=== PATIENT | female | born 2000 | race Caucasian/White ===

== ENCOUNTER 2019-08-10 09:00 | Outpatient (RCR) | payer BC, SELFPAY ==
--- NOTE | 2019-08-10 09:10 | BH.SGPN.GN ---
Behaviors/Verbalizations/Mental Status: []Client alert and oriented, appropriately groomed and casual in appearance. Eye contact good. Motor activity appropriate. Speech within normal limits. Affect congruent, mood anxious and depressed. Thoughts linear, logical, no signs of hallucinations or delusions. Reviewed daily symptom tracker and client denies suicidal ideation, plan, or intent at this time. Client Response/Progress/Benefit: []Client new to IOP treatment and did well to actively engage AEB attentively listening to others and openly processing with the group. Shee reported her emotion for the day is ?numb? as she has been struggled to really feel ?much of anything recently?. Expressed that apathy is something she wants to address while in the program. Client did well to identify current mental health wins and indicated that one win was opening up to her mother about her mental health for the first time. Shared this was scary but ended up being a positive experience as her mother was more understanding than she had expected. Client indicated that another win is finally getting some school work done rather than continuing to procrastinate. She expressed that avoidance is something she often struggles with. Additional stressor noted as toxic friendships she struggles setting boundaries with. Appeared to benefit from group support and structure. Recommended continued IOP tx to reduce anxiety and depression, improve coping repertoire, and prevent decompensation. Narrative Note: []
--- NOTE | 2019-08-10 10:15 | BH.SGPN.GN ---
Behaviors/Verbalizations/Mental Status: []Client alert and oriented, casual dress, hygiene tended to. Eye contact good. Motor activity appropriate. Speech within normal limits. Affect constricted, mood depressed and anxious. Thoughts linear, logical, no signs of hallucinations or delusions. Client Response/Progress/Benefit: []Pt responded well to session as evidenced by pt contributing to discussion and listening attentively to others. Pt engaged in discussion about the importance of addressing obstacles and how avoidance of obstacles makes the situation worse. Pt identified in her current reality she feels all by herself and everyone else is connected. Pt stated she doesn't feel wanted and pushes people away. Pt stated her desired reality is to feel connected with others, improve relationships and have more self-compassion. Pt seemed to benefit from increased awareness of current reality and identifying a realistic goal for desired reality. Pt to continue IOP to increase healthy coping, decrease anxiety, and prevent decompensation. Narrative Note: []
--- NOTE | 2019-08-10 11:18 | BH.SGPN.GN ---
Behaviors/Verbalizations/Mental Status: []Client alert and oriented, neatly dressed and groomed. Eye contact good. Motor activity appropriate. Speech within normal limits. Affect congruent, mood anxious. Thoughts linear, logical, no signs of hallucinations or delusions. Client Response/Progress/Benefit: []Client was an active participant in group discussion and activity, did well to communicate instructions during the activity. Engaged during activity and provided ideas on how to cope with internal barriers that keep clients stuck from moving towards goals. Barriers identified by the group included: lack of motivation, rumination, anxiety, negative thinking, limited supports, and lack of confidence. Strategies identified for overcoming these barriers included: meditation, strengthening old supports, thought challenging, opposite action, and positive self-talk. Client selected that she wanted to work on managing her anxiety by learning calming strategies. Client reported she wants to practice deep breathing. Client stated she has never been in counseling before, so all the coping skills are new to her. Benefited from group by identifying obstacles and solutions to desired reality. First day of IOP. Will continue IOP tx to prevent decompensation of anxiety symptoms, reduce depression, and learn healthy coping skills. Narrative Note: []
--- NOTE | 2019-08-13 09:02 | BH.SGPN.GN ---
Behaviors/Verbalizations/Mental Status: []Client alert and oriented, casual dress, hygiene tended to. Eye contact good. Motor activity appropriate. Speech within normal limits. Affect congruent, mood anxious. Thoughts linear, logical, no signs of hallucinations or delusions. Reviewed client's daily symptom tracker, no risk for suicidal ideation, plan, or intent as of 08/13/19. Client Response/Progress/Benefit: []Client responded well to session, providing supportive statements to peers. Client reports feeling confused today. Client stated she had a bad experience at a [employer] over the weekend, which made client freak out on her brother and spend the night ruminating. Client reported she spent time with some old friends from high school, and some of them are toxic. Client shared she does not know how to set boundaries with them because client often worries about what other people think of her. Client was receptive to feedback from to group on setting boundaries as a form of self-love. Client stated she has a good friend is supportive of setting boundaries which helps client. Client's mental health wins today are that client came to group today even though she wanted to cancelled because she was feeling low and spending time with her family this weekend. Client appeared to benefit from verbalizing her stressor and gaining perspective on ways to set boundaries. Will continue IOP tx to prevent decompensation of symptoms, improve mood stability, and decrease avoidance behaviors. Narrative Note: []
--- NOTE | 2019-08-13 10:07 | BH.SGPN.GN ---
Behaviors/Verbalizations/Mental Status: []Client alert and oriented, casually dressed and groomed. Eye contact fair to good. Motor activity appropriate. Speech within normal limits. Affect constricted, mood anxious and depressed. Thoughts linear, logical, no signs of hallucinations or delusions. Client Response/Progress/Benefit: []Client was an active participant AEB client providing input during discussion and listened attentively to others. Contributed to discussion on importance of being able to ?sit with uncomfortable feelings?, however shared struggling to be able to do so. Client connected with discussion on different types of anxiety, as well as the difference between ?normal? anxiety and anxiety disorders. Client gained awareness of personal physical symptoms of anxiety which included: headache, tight muscles, tight chest, racing heart, fatigue, and upset stomach. Client identified anxious thoughts she has include: ?what will happen if?? and What will everyone think?. Client appeared to benefit from gaining insight to physical signs of anxiety and how thoughts can increase or maintain anxiety. Will continue IOP to increase healthy coping skills, challenge distorted thoughts, and prevent decompensation. Narrative Note: []
--- NOTE | 2019-08-13 11:15 | BH.SGPN.GN ---
Behaviors/Verbalizations/Mental Status: [] Client alert and oriented, casual in appearance. Eye contact good. Motor activity appropriate. Speech within normal limits. Affect congruent, mood anxious and depressed. Thoughts linear, logical, no signs of hallucinations or delusions. Client Response/Progress/Benefit: []Pt an active participant AEB providing input and personal examples to discussion and listened attentively to others. Pt did well to connect with the discussion reviewing three categories of skills for managing anxiety which included mind-based, body-based, and self-soothing. Pt contributed and took notes as group brainstormed various skills within the different categories. Pt provided example of walking as a body-based activity. She did well to identify a skill he is willing to practice in each area which included self-soothing as: gardening; mind-based: meditation, and body-based: trying progressive muscle relaxation. Pt seemed to benefit from increased awareness of healthy skills to manage anxiety related symptoms and in identifying skills willing to practice outside treatment environment. Progress seen in increased insight and engagement in group. Recommended to continue IOP level of care to increase healthy coping skills, continue to promote communication skills, and prevent decompensation. Narrative Note: []
--- NOTE | 2019-08-13 14:13 | BH.MTP ---
Master Treatment Plan - Patient Information Program Physician:: Dr. 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 Description of Barriers: Client?s symptoms are currently impacting her social, familial, and educational functioning. Client reports avoidance behaviors and isolation because of her anxiety and depression which caused client to switch colleges last year. Client reports she struggles with reaching out to support due self-stigma associated with her mental health. Client shared ?I didn?t want to admit something was wrong.? Client reported she has a hard time setting boundaries at times and often worries what other people think of her which leads to rumination. Client recognizes that she struggles to be compassionate with herself which often leads to self-criticism and impatience with progress. Client reports barriers in finding better social supports which also causes client anxiety. Functional Impact: Client is a 19-year-old female with a history of depression and anxiety. Client was referred to IOP by her mother due to worsening anxiety and depression that was impacting client functioning. Client shared since starting college last year, her anxiety and depression have significantly worsened. Client reported her first semester of college she had difficulty leaving her dorm room for class or social events. Client shared she would sit in her room and have constant negative thoughts. Client's grades became impacted by client's isolation and client decided to transfer schools to move closer to home. Client transferred to a college closer to home, but her symptoms of depression and anxiety continued to worsen. Client endorses a depressed mood, passive thoughts of , lack of motivation, lack of concentration, lack of energy, anhedonia, and increased sleep. Client also reports feeling disconnected and hopeless. Additionally, client reports symptoms of social anxiety and anxiety. Client endorses daily ruminations, history of panic attacks, racing thoughts, over-analyzing, and avoidance behaviors. Client's symptoms are currently impacting her ability to function at her baseline as well as complete daily tasks. Goal Relevant Strengths/Supports: Client presents as a kind, intelligent, and motivated young woman who wants to improve her mental health. Client has never had therapy before, but she reports being open to learning new strategies to improve her mental health. Client has a good base of healthy coping skills including exercising, spending time with friends, and talking with her mother. Client reported her mother is like my best friend and client is interested in having her mother come in for a family session. Client is currently in college taking online classes and she has goals to potentially move in with a friend next year. - Objectives Objective #1 Stated Objective: Client will learn and utilize 2-3 healthy coping strategies to better manage depressive symptoms as shown by a reduced DSM-5 scores for depression. Interventions: Through group and individual sessions, therapist will help client identify triggers and warning signs of depression and emotional dysregulation including emotional, physical, and behavioral changes. Therapist will teach client various coping skills to manage her symptoms and give client tangible resources to use to regulate emotions. Therapist will use cognitive restructuring techniques and help client gain awareness of negative thoughts that reinforce guilt and depression. Therapist will provide psychoeducation on maintenance cycles and help client learn ways to break unhealthy maintenance cycles. Therapist will help client incorporate behavioral activation and assist client in setting SMART goals. Discharge Criteria: Client will have met this goal when she can report learning and using at least 2 coping skills to manage depressive symptoms. Additionally, client will have met this goal when her depressive symptoms have reduced on the DSM-5 scale. Target Date: 09/21/19 Review Date: 09/10/19 Status: open Objective #2 Stated Objective: Client will identify at least 2-3 negative self-talk messages used to reinforce negative core beliefs and replace thoughts with positive, realistic messages. Interventions: Therapist will help client identify distorted, negative beliefs about self and replace with more realistic, affirmative messages. Therapist will use CBT to help client increase insight to the connection between thoughts, emotions, and behaviors. Therapist will also use dialectical thinking to help client combat all or nothing expectations. Therapist will encourage client to practice thought challenging and communicating with her close supports more regularly. Discharge Criteria: Client will have achieved this goal when can verbalize at least 2 negative self-talk messages and effectively replace those thoughts with affirmative messages. Target Date: 09/21/19 Review Date: 09/10/19 Status: open Problem/Goal #2 - Problem/Goal #2 Stated Goal:: Client will decrease intensity, duration, and frequency of anxiety so that daily functioning is not impaired. Description of Barriers: Client?s symptoms are currently impacting her social, familial, and educational functioning. Client reports avoidance behaviors and isolation because of her anxiety and depression which caused client to switch colleges last year. Client reports she struggles with reaching out to support due self-stigma associated with her mental health. Client shared ?I didn?t want to admit something was wrong.? Client reported she has a hard time setting boundaries at times and often worries what other people think of her which leads to rumination. Client recognizes that she struggles to be compassionate with herself which often leads to self-criticism and impatience with progress. Client reports barriers in finding better social supports which also causes client anxiety. Functional Impact: Client is a 19-year-old female with a history of depression and anxiety. Client was referred to [facility] by her mother due to worsening anxiety and depression that was impacting client functioning. Client shared since starting college last year, her anxiety and depression have significantly worsened. Client reported her first semester of college she had difficulty leaving her dorm room for class or social events. Client shared she would sit in her room and have constant negative thoughts. Client's grades became impacted by client's isolation and client decided to transfer schools to move closer to home. Client transferred to a college closer to home, but her symptoms of depression and anxiety continued to worsen. Client endorses a depressed mood, passive thoughts of , lack of motivation, lack of concentration, lack of energy, anhedonia, and increased sleep. Client also reports feeling disconnected and hopeless. Additionally, client reports symptoms of social anxiety and anxiety. Client endorses daily ruminations, history of panic attacks, racing thoughts, over-analyzing, and avoidance behaviors. Client's symptoms are currently impacting her ability to function at her baseline as well as complete daily tasks. Goal Relevant Strengths/Supports: Client presents as a kind, intelligent, and motivated young woman who wants to improve her mental health. Client has never had therapy before, but she reports being open to learning new strategies to improve her mental health. Client has a good base of healthy coping skills including exercising, spending time with friends, and talking with her mother. Client reported her mother is like my best friend and client is interested in having her mother come in for a family session. Client is currently in college taking online classes and she has goals to potentially move in with a friend next year. - Objectives Objective #1 Stated Objective: Client will identify 2-3 cognitive distortions that lead to rumination and learn 2-3 ways to manage these thoughts to better manage anxiety as shown by reduced DSM-5 scores for anxiety. Interventions: Therapist will provide education on the most common cognitive distortions and teach client the connection between thoughts, emotions, and feelings. Therapist will assist client in identifying, challenging, and replacing dysfunctional thoughts with positive, more realistic thoughts. Therapist will use CBT and DBT techniques to help client gain awareness of thinking errors and learn how to more effectively handle negative thoughts. Therapist will also use self-compassion to help client set more realistic expectations for herself. Discharge Criteria: Client will have accomplished this goal when can identify at least 2 cognitive distortions and at least 2 coping skills to manage negative thoughts. Target Date: 09/21/19 Review Date: 09/10/19 Status: open Objective #2 Stated Objective: Client will reduce avoidance behaviors that reinforce anxiety by setting 2-3 small goals a week to increase socialization and decrease school-related stress. Interventions: Through group and individual sessions, client will learn about the benefits of goal setting to overcome anxiety-producing situations. Therapist will help client set SMART goals and challenge barriers. Therapist will use cognitive restructuring techniques and help client gain awareness of negative thoughts that reinforce avoidance cycles. Therapist will help client incorporate mindfulness, opposite action, and self-talk strategies to manage anxiety. Discharge Criteria: Client will have accomplished this goal when she can report accomplishing at least two small goals a week that support her plans for the future. Additionally, client will be able to report decreased isolation. Target Date: 09/21/19 Review Date: 09/10/19 Status: open
--- NOTE | 2019-08-13 14:13 | BH.MDN ---
Multi-Disciplinary Note - Note 30-min Individual Time Started:: 12:15 Date: 08/13/19 Purpose of session/treatment goals addressed:: The purpose of this session was to gather information on client's current stressors, symptoms, and treatment goals. Another goal was to build rapport. Eye Contact:: Good Motor Activity:: Appropriate Appearance:: Casual Speech:: Appropriate Mood:: Anxious, Dysthymic Affect:: Congruent Thoughts:: Linear, Logical, No evidence of hallucinations/delusions noted Staff Interventions:: Therapist used active listening and open-ended questions to explore client's current stressors, symptoms, history, and treatment goals. Therapist used strengths perspective to build rapport and help client identify personal resilience factors and already existing coping skills. Therapist provided psychoeducation on depression and anxiety, maintenance cycles, and cognitive distortions. Gave client homework to identify her personal maintenance cycles. Client Response:: Client responded well to session, open to meeting with therapist. Client shared group went well for her today because she learned all about anxiety. Client stated she feels like she is in school because she is learning so much in [employer]. Client connected with maintenance cycles for both anxiety and depression. Client shared when she was at [employer] client became depressed which led to isolation. Client reported she ended up leaving because she was not functioning which was impacting her schoolwork. Client reported having a lot of self-deprecating talk during her time at [employer]. Client shared I felt like I wasn't enough and that the other girls were better than me. Client receptive to psychoeducation on anxiety, depression, and cognitive distortions. Client read through some of the distortions and connected with overgeneralizing and emotional reasoning. Client reports she often has negative thoughts that others think badly of her and she cares a lot about what other people think of her. Client shared she wants to move away from her small town and get away from the toxic environment. Client stated she has negative thoughts that she is a burden to her family, and she connected with mental health stigma. Willing to have a family session with her mother to help client's mother get more information on psychoeducation. Risks/Concerns:: Client denies any suicidal ideations, plan, or intent as of 08/13/19. Progress Toward Goals/Plan:: Client?s second day of IOP tx. No progress to document at this time. Client appears motivated for treatment and was receptive to psychoeducation. Currently endorses a depressed mood with anhedonia, low energy, and lack of motivation. Client also reports social anxiety, avoidance behaviors, and ruminations. Client shared her anxiety has caused client to struggle in college and impacts client?s interpersonal relationships. Receptive to learning about maintenance cycles and strategies to reduce intensity of symptoms. Will continue IOP tx to prevent decompensation, improve daily functioning, and reduce anxiety. Time Stopped:: 12:48
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
--- NOTE | 2019-08-15 10:14 | BH.NA_ITS ---
Physical Data - Vital Signs Pulse Rate: 76 Respiratory Rate: 14 Blood Pressure: 100/50 - Height/Weight Height: 1.75 m Weight:: 67.132 kg Weight in Pounds: 148.0 lbs Nutritional History - Appetite Nutritional Instructions:: If client shows signs of a swallowing problem, weight change of 10 pounds or more in the last month, or is on a diabetic diet, the physician will review and request a dietitian consult, as appropriate. All unintentional weight loss will be referred to the physician for decision on need for dietitian consult. Describe your appetite:: Poor Have you noticed a change in your eating habits lately?: Yes - client reports decreased appetite Functional Assessment - Sleep Pattern Describe any problems with sleeping: Client reports decrease in sleep. Client states she sleeps about 5 hours per night and finds it hard to fall asleep and hard get back to sleep if she wakes in the middle of the night. Client does report sleeping during the day at times. - Activities Motor Activity:: Functional Sensory/Communication Assess - Communication Problems Do you have difficulty understanding what people are saying?: No What is your primary language?: Malawian Learning Assessment - Education What is your level of education?: Some College Medical Problems/History - Gastrointestinal Conditions Gastrointestinal: Other (See comments) Comments:: client reports history of some acid reflux, has been on medication at times in the past for same but is not currently taking anything. - Pain Assessment Do you have acute or chronic pain?: No Surgical History - Surgical History Have you had any surgeries? If so, list type and date:: Yes - tonsilectomy at age 2 Substance Abuse - Substance Abuse Please describe substance abuse in the last 30 days:: Client reports drinking alcohol every other weekend, stating she usually has 5 glasses of wine. Client denies tobacco use. Client states she has tried marijuana in the past but does not currently use. Client denies drinking beverages with caffiene. Mental Status Summary - Mental Status Significant Findings/Observations on Appearance and Mood:: Client is alert and oriented x 4. Client is casually groomed with good hygiene. Client is cooperative with assessment and makes good eye contact. Client is wearing cloth mask over nose/mouth due to COVID pandemic. Client's voice with normal rate and volume, speech coherent and spontaneous. Client appears mildly depressed during assessment. Client with good attention during assessment. Client makes logical associations and has normal processing. Client denies delusions/hallucinations, no evidence of same. Client denies SI. Suicide Assessment - Suicidal Ideation Are you currently or have you been suicidal in the past?: Yes Suicidal Intentional Rating Scale (SIRS): Suicidal thoughts (past) - Client denies SI today. Physician Notification: If Active suicidal thoughts/Will not contract for safety is checked, contact physician and document in the Physician Notification section below. Past Psychiatric History - MH Treatment Hx Past Psychiatric Medications:: None Age of first mental health symptoms: Client states her depression really has started and worsened in the last year with her being at college. Client has never been diagnosed with depression. Describe (age, circumstance, etc) any past hospitalizations: None. Current providers for mental health treatment (counselor, psychiatrist, returned case inspector, etc.): None. Fall Risk Assessment - Age Age: Less than 60 - Mental Status Mental Status: Willing & able to ask for assistance when needed - Physical Status Physical Status: No problems - Impairments Impairments: None - Elimination Elimination: Continent AND independent - Gait or Balance Gait or Balance: Walks independently - Hx of Falls History of falls in the past 6 months: No known history - Medications/Substances Medications/substances used within the past 24 hours or ordered to administer: None of the medications/substances list above - Total Score Total Points:: 0 RN Summary of Impressions - Impressions Recommendations: Include psychiatric and medical issues, treatment planning recommendations, and discharge planning needs. Impressions: Psychiatric Issues: major depressive disorder recurrent severe without psychosis, generalized anxiety disorder - Level of Care How do the client's current symptoms and functional deficits support need for this level of care?: Client states her depression and anxiety have been going on for about a year. Client states being at college has made it worse. Client states over the year, she has discussed getting therapy with her mom about the depression/anxiety symptoms but has never really had time until now with [facility] dylan and doing college classes online instead of at campus. Client reports feelings of social anxiety, stating she is constantly thinking other people are judging her and shes not good enough for other people. Client also reports feelins of worthlessness, not feeling good enough for her family, decreased sleep, decreased appetite, decreased concentration, anhedonia, and avoidance. Client also reports as stressor as pressure from her family due to them having a family business, and she feels like she is not good enough. Client denies SI at this time. IOP will promote gains and prevent further decompensation while p roviding social support and skills training.
--- NOTE | 2019-08-15 10:15 | BH.SGPN.GN ---
Behaviors/Verbalizations/Mental Status: []Client alert and oriented, casually dressed and groomed. Eye contact good. Motor activity appropriate. Speech within normal limits. Affect constricted, mood euthymic. Thoughts linear, logical, no signs of hallucinations or delusions. Client Response/Progress/Benefit: []Client responded well to session, attentive and providing input to discussion. Client stated negative thoughts and past experiences can keep people from setting boundaries in the future. Client agreed with peers that without healthy boundaries, one?s mental health can worsen. Group identified the benefits to setting boundaries as well as the consequences of not setting healthy boundaries. Client stated it is important to set boundaries with ourselves and others. Client reported this could help a person get out of an unhealthy maintenance cycle. Participated in the discussion of benefits of setting boundaries which included; feeling happier, less negative thinking, avoidance of toxic people, and ability to manage mental health better. Client engaged during psychoeducation on the different types of boundaries and able to identify examples of each. Client seemed to benefit from increased awareness of how poor boundaries can negatively impact mental health. Progress noted in client?s increased self-awareness and engagement in group. Will continue IOP tx to prevent decompensation, improve mood stability, and improve educational functioning. Narrative Note: []
[2019-08-15 10:44] VITALS: BP 100/50; PULSE 76; RESP 14
--- NOTE | 2019-08-15 11:17 | BH.SGPN.GN ---
Behaviors/Verbalizations/Mental Status: []Client alert and oriented, casually dressed and groomed. Eye contact good. Motor activity appropriate. Speech within normal limits. Affect constricted, mood euthymic. Thoughts linear, logical, no signs of hallucinations or delusions. Client Response/Progress/Benefit: []Client responded well to session, actively contributing during discussion and making connections during the activity. Client engaged in the boundary self-assessment activity and participated in discussion to process the activity. Client shared she has struggled with not sharing her mental health with supports ?because I don?t want them to know I?m struggling.? Client able to recognize progress in her willingness to share about her mental health at IOP. Client attentive during psychoeducation on the boundary setting styles and able to connect with the different styles. Client reported she uses both the rigid and the flexible styles. Client shared she has a tendency to initially shut down and hold in her emotions, but with the passing of time, client will seek support. Client shared she is trying to combat distortions that prevent her from reaching out to support sooner. Client wants to work on being more flexible by communicating her mental health treatment with her mother. Progress noted as client continues to learn more about her mental health symptoms and healthy coping skills. Will continue IOP tx to prevent decompensation, improve mood stability, and decrease frequency of negative thoughts. Narrative Note: []
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
--- NOTE | 2019-08-15 11:44 | BH.PSY.EVA_ITS ---
Initial Treatment Plan - Patient Information Visit Information: ADMISSION DATE: EXPECTED LOS: 4-6 weeks - Problems/Symptoms Problem #1:: Depression Symptom:: Sadness, hopelessness, worthlessness, anhedonia, decreased concentrat ion, biological disruption of sleep Problem #2:: Anxiety Symptom:: Rumination, restlessness, social avoidance
--- NOTE | 2019-08-17 10:14 | BH.SGPN.GN ---
Behaviors/Verbalizations/Mental Status: []Client alert and oriented, casually dressed and groomed. Eye contact good. Motor activity appropriate. Speech within normal limits. Affect congruent, mood anxious, depressed. Thoughts linear, logical, no signs of hallucinations or delusions. Client Response/Progress/Benefit: []Pt active participant as shown by contribution to discussion and insight provided. Pt shared connecting to group topic of self-care. Shared that to her self-care means ?loving ourselves? and discussed that ?if we truly loved ourselves, we?d me more enjoyable to be around?. Pt helped the group discuss benefits of self-care which included; improved self-esteem, increase patience, increased productivity, improved relationships. Pt participated in the discussion of the common myths about self-care including self-care is selfish, too much effort and time, and is self-indulgent. Client participated in the discussion on debunking of these myths. Client seemed to benefit from increased awareness of the importance of self-care and challenging common myths that prevent practicing self-care. Discussed at times struggling to remind herself that self-care is important when not feeling well. Client progress noted in client?s increased insight into self-care. Will continue IOP tx to promote gains, improve consistency and stability, as well as prevent decompensation. Narrative Note: []
--- NOTE | 2019-08-17 11:13 | BH.SGPN.GN ---
Behaviors/Verbalizations/Mental Status: []Client alert and oriented, neatly dressed and groomed. Eye contact good. Motor activity appropriate. Speech within normal limits. Affect congruent, mood euthymic. Thoughts linear, logical, no signs of hallucinations or delusions. Client Response/Progress/Benefit: []Client receptive of session, engaged and positively contributing to discussion. Participated in further debunking myths about self-care and reinforcing the benefits of practicing consistent self-care. Engaged in small group discussion and attentive while others shared. Willing to complete worksheet activity and helped the group identify various types of self-care activities. Client completed self-assessment activity on the different areas of self-care and was able to identify current practices she uses and identify areas she can improve upon. Client reported she can improve her emotional self-care. Client reported up until coming to IOP, she was very rigid with her emotional boundaries and did not share with supports. Client stated she wants to work on learning how to express her emotions and not assume her supports can read her mind. Client appeared to benefit from increasing awareness of how she can improve self-care balance. Progress noted as client has been able to increase self-awareness and begin to learn healthy coping skills. Will continue IOP tx to decrease negative thoughts, reduce depression and anxiety, and improve mood stability. Narrative Note: []
--- NOTE | 2019-08-20 11:12 | BH.SGPN.GN ---
Behaviors/Verbalizations/Mental Status: []Eye contact is fair to good. Motor activity is appropriate. Appearance is neat and casual. Speech is Appropriate. Mood is depressed, anxious. Affect is congruent. Thoughts are linear and logical. No evidence of psychosis Client Response/Progress/Benefit: []Client receptive of session, semi-engaged and contributing to discussion when prompted, though remained mostly passive throughout. Provided some feedback to peers and willingly completed goal setting worksheet. Client chose the goal; Spend at least 30 minutes exercising daily for 7 days. When asked why this goal was important and beneficial to client's mental health she stated; It will improve self-confidence, make me feel more motivated to get other tasks done, and reduce depression. Identified the following barriers to completing this goal which included; forgetting, negative self-talk, and lack of motivation. Identified solutions to barriers which included; set a reminder, say positive affirmations, and ask someone to workout with her. Benefited from this group by practicing how to develop a short-term SMART goals related to mental health. Will continue IOP tx to further decrease anxiety and depression, reduce negative thoughts, and improve healthy communication levels. Narrative Note: []
--- NOTE | 2019-08-23 09:05 | BH.SGPN.GN ---
Behaviors/Verbalizations/Mental Status: []Client alert and oriented, casual dress, hygiene tended to. Eye contact good. Motor activity appropriate. Speech within normal limits. Affect constricted, mood dysthymic. Thoughts linear, logical, no signs of hallucinations or delusions. Reviewed client?s symptom tracker, no risk of suicidal ideation, plan or intent as of 08/23/19. Client Response/Progress/Benefit: []Client responded well to session, attentive and engaged throughout session. Client reports feeling tired but calm today. Client shared she has not had a lot of energy or motivation late, but client has still been motivating herself to get up and do things throughout the day. 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 Client reported this is exciting for her because she is going to school for business, but she is anxious to meet the high expectations. Client reported her expectations for herself can be unrealistic which leads to comparison and anxiety. Public Health Clinical Nurse Specialist reminded client to practice self-compassion when she starts her new role. Appeared to benefit from reflecting on the benefits of self-compassion and connecting with peers. Will continue IOP tx to prevent decompensation, improve mood stability, and further decrease intensity of symptoms. Narrative Note: []
--- NOTE | 2019-08-23 10:14 | BH.SGPN.GN ---
Behaviors/Verbalizations/Mental Status: [] Client alert and orient. Appearance casual and appropriately groomed. Speech an appropriate rate and tone. Motor activity WNL. Mood anxious and dysthymic, affect congruent. No evidence of delusion or hallucinations.? Client Response/Progress/Benefit: [] Client responded well to session, attentive throughout, providing input to discussion. Listened and participated throughout group discussion defining conflict and the differences between internal and external conflict. Group reported the benefits of addressing conflict included: increased self-confidence, increased trust in relationships, having needs be met, and preventing further conflict from arising. Group additionally identified and discussed consequences of not addressing conflict in healthy ways which included: decreased self-esteem, damaged relationships, increased mental health symptoms, and additional stressors developing as a result. Benefited as client was able to identify current conflict style and how it impacts mental health. She nodded as fellow participants discussed times they have used avoidance and accommodating approached to conflict. Pt expressed that avoiding external conflict can reinforce depressive sx and result in increased internal conflict. Progress noted as shown by client?s report of improved application of skills learned. Will continue IOP tx to promote application of healthy communication skills, reduce mental health sx severity, and further improve daily functioning. Narrative Note: []
--- NOTE | 2019-08-23 14:33 | BH.MDN ---
Multi-Disciplinary Note - Note 45-min Individual Time Started:: 11:37 Date: 08/23/19 Purpose of session/treatment goals addressed:: The purpose of this session was to address current symptoms, stressors, and triggers. Another goal was to identify core values and identify strategies to reduce stressors. Other topics included; communication and boundary setting. Eye Contact:: Good Motor Activity:: Appropriate Appearance:: Neat Speech:: Appropriate Mood:: Anxious Affect:: Constricted Thoughts:: Linear, Logical, No evidence of hallucinations/delusions noted Staff Interventions:: Therapist used active listening and open-ended questions to explore client's current stressors, triggers, and symptoms. Therapist praised client for communicating her feelings with her father. Therapist provided psychoeducation on cognitive dissonance and how this impacts one's mental health. Therapist helped client explore her values and reflect on how her values impact current relationships. Therapist helped challenge anxious thoughts and process current stressors. Thereapist assisted client in setting a small goal for today to reduce stress and increase productivity. Client Response:: Client responded well to session, open to meeting with therapist. Client shared she had a good conversation with her dad over the weekend. Client stated she expressed to her dad that she feels left out when he spends time with just client's brothers. Client stated she was nervous to express this to him, but it turned out to be a good conversation. Client shared belief their relationship has improved because of it. Client reported she is feeling really anxious today because she is stressed about all she has to do. Client is also anxious about her friendships and setting boundaries with toxic people. Receptive to discussion on cognitive dissonance and how this impacts client's mental health. Client reported she connects with cognitive dissonance and stated she has felt torn when spending time with certain people because I know we don't value the same things. Client discussed her values and able to identify her most important values in life which included; career, spirituality, and job. Client used this to reflect on friendships in her life that do not support these values. Client reported this will help her set boundaries with toxic people. Client stated she is feeling anxious about all the things she has to accomplish. Client reported she has finals next week and she is anxious about not doing her usual routines. Client and therapist disucssed strategies to help client better manage her stressors. Client asked herself questions such as; who can help client, does this really need accomplished this week, and how long will this take. Client's goal today is to write one of her shorter essays and practice her skin-care routine. Risks/Concerns:: Client denies any suicidal ideations, plan, or intent as of 08/23/19. Progress Toward Goals/Plan:: Client appears to be making progress towards her treatment goals as shown by client's report of communicating her emotions more openly with family. Client is also practicing opposite action by pushing herself to get out of the house each day. Client continues to struggle with depressive symptoms of poor appetite, lack of energy, lack of motivation, and difficulty falling asleep. Client also continues to endorse ruminations, avoidance behaviors, and anxiety daily. Will continue IOP tx to prevent decompensation of symptoms, increase healthy coping skills, and improve mood stability. Time Stopped:: 12:20
== END 2019-08-23 23:59 ==
LOC: BHIOP 09:00
PROVIDERS: PCP Internal Medicine; Referring Provider Psychiatry & Neurology Psychiatry; Visit Provider Psychiatry & Neurology Psychiatry
DX: F33.2 Major depressive disorder, recurrent severe without psychotic features (principal); F41.1 Generalized anxiety disorder; Z79.899 Other long term (current) drug therapy
CPT/HCPCS: H0035; 90832; 90834; 90853

== ENCOUNTER → 2019-08-17 12:19 | Outpatient (CLI) | payer BC, SELFPAY ==
[2019-08-17 13:32] LABS: Vitamin D,25 Hydroxy 35.8 ng/mL
== END ==
PROVIDERS: PCP Internal Medicine; Referring Provider Obstetrics & Gynecology; Visit Provider Obstetrics & Gynecology
DX: E55.9 Vitamin D deficiency, unspecified (principal)
CPT/HCPCS: 36415; 82306; 84443

== ENCOUNTER 2019-08-27 09:00 | Outpatient (RCR) | payer BC, SELFPAY ==
[2019-08-24 00:22] VITALS: BP 100/50; PULSE 76; RESP 14
--- NOTE | 2019-08-27 09:08 | BH.SGPN.GN ---
Behaviors/Verbalizations/Mental Status: []Client alert and oriented, appropriately groomed and casual in appearance. Eye contact good. Motor activity appropriate. Speech within normal limits. Affect congruent, mood euthymic. Thoughts linear, logical, no signs of hallucinations or delusions. Reviewed daily symptom tracker and client denies suicidal ideation, plan, or intent at this time. Client Response/Progress/Benefit: []Pt receptive of session, engaged throughout AEB attentively listening to others and openly processing with the group. Identified emotion for the day as ?confident? as she indicated an increased ability to recognize areas of progress and is implementing more positive self-talk. She did well to identify current mental health wins and indicated that one win was following through with her own personal boundaries by saying ?no? to hanging out with people she has identified as toxic to her in the past. Pt expressed that she was able to view this as empowering rather than focus on feeling guilty for not going. Notes feeling more confident in her decision making as a result. Pt noted that another win is being able to reach out to a healthy support and reflect on areas in which she feels she is making progress. Shared this helped to remind her of the positive supports in her life and allowed her to be reflect on her boundary setting as a necessary accomplishment. Expressed that her current stressor is an upcoming final exam for school later in the week, though noted that the positive is she will be done with classes for the semester. Appeared to benefit from group support and progress noted in pt report of improved mood and use of affirmations. Recommended continued IOP tx to further promote healthy change behaviors, maintain stability, and prevent decompensation.?? Narrative Note: []
--- NOTE | 2019-08-27 10:15 | BH.SGPN.GN ---
Behaviors/Verbalizations/Mental Status: []Client alert and oriented, casually dressed and groomed. Eye contact good. Motor activity appropriate. Speech within normal limits. Affect congruent, mood euthymic. Thoughts linear, logical, no signs of hallucinations or delusions. Client Response/Progress/Benefit: []Client responded well to session, attentive and engaged throughout session and activity. Client appeared to connect with the topic of fear of failure. Client reported one?s perspective on progress can contribute to feeling like they have failed. Client shared ?we believe progress is linear but it?s not.? Client participated in the discussion famous failures and how one?s response to setbacks is what truly matters. Group discussed common initial reactions to failure which included; hopelessness, negative self-talk, self-sabotage, and disappointment. Client connected with the concept that mindset is powerful in determining how a person moves forward after failing. Client shared ?managing setbacks helps us be more positive in the future.? Connected with fear of failure and how fear of failure can impact one?s mental health. Engaged and positive during the group activity, helping peers who could not remember the pattern. Client appears to be connecting with the different group topics and has been attentive during groups. Will continue IOP tx to prevent decompensation of depressive symptoms, improve healthy coping skills, and increase self-esteem. Narrative Note: []
--- NOTE | 2019-08-27 11:20 | BH.SGPN.GN ---
Behaviors/Verbalizations/Mental Status: []Client alert and oriented, casual dress, hygiene tended to. Eye contact good. Motor activity appropriate. Speech within normal limits. Affect could not be assessed due to all patients needing to wear masks to prevent potential spread of coronavirus. mood euthymic. Thoughts linear, logical, no signs of hallucinations or delusions. Client Response/Progress/Benefit: []Client responded well to session, participating during the group activity and willing to complete the worksheet. Client completed the fear of failure worksheet and reported that fear of failure is keeping client from trying new things and meeting new people. Client able to identify barriers that reinforce her fear of failure which included: negative self-talk, over-thinking, negative people, avoidance of stress, lack of self-love, and anxiety. Client attentive during discussion of the different strategies to help overcome fear of failure. Group identified strategies such as; positive self-talk, thought challenge, opposite action, keeping track of wins, setting smart goals, and accepting that mistakes happen. Client appeared to benefit from learning ways to overcome fear of failure. Will continue IOP tx to increase the use of healthy coping skills, challenge negative thoughts, and prevent decompensation. Narrative Note: []
--- NOTE | 2019-08-29 09:16 | PCM.BH.PN ---
Progress Note Progress Note: History of Present Illness/Interim History: [] The patient is a 19-year-old single female who is seen in follow-up at the [facility] program for depression and anxiety. I last saw the patient 2 weeks ago and at that time her dose of Zoloft was increased from 50 mg to 100 mg p.o. daily. The patient states that she has tolerated the medicine well and feels that her anxiety and mood have improved over the past 2 weeks. However, a few days ago she did have some pain beneath her sternum and increased anxiety. Discussed with the patient that this would be unlikely due to Zoloft since she has been taking this dose almost 10 days or more before she had the symptoms. She denies any other symptoms or side effects from the Zoloft. She states that her mood has improved and she has occasional sadness and tears but overall feels much less depressed. She feels more motivated to get things done. She denies having any more passive thoughts of . She denies hopelessness but endorses occasional feelings of worthlessness. Her anxiety is better but she still is worrying somewhat. She is enjoying more things and denies anhedonia. She has been enjoying seeing her friends horse in particular in the past week or so. Her last day of school today and this will somewhat relieve her stress. 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 Her sleep is okay overall about 6 to 7 hours a night. At times though she has trouble getting to sleep but has been using [id number] Benadryl 25 to 50 mg for this. She feels the Benadryl does help her sleep so I encouraged her to use it. She denies any suicidal ideation, homicidal ideation, hallucinations or delusions. She denies any panic attacks. She states her thoughts are less intense in terms of ruminating. Current Psychiatric Medications: [] Zoloft 100 mg p.o. daily (x2 weeks). Benadryl 25 mg, 1-2 p.o. nightly as needed for sleep. Laboratory: TSH was normal at 0.6; vitamin D2 was 35.8 which is somewhat low. Mental Status Examination: [] Patient is a 19-year-old female who is seen by telehealth and appears to be casually dressed and groomed with good hygiene. She has no psychomotor agitation or retardation. She has good eye contact as I am able to assess by computer. She has normal speech with regular rate and rhythm. Her mood is depressed but improved. Her affect is full to slightly constricted. Her thought process is goal-directed and organized. Her thought content: No evidence of any more passive thoughts of . No evidence of homicidal or suicidal ideation. No evidence of hallucinations or delusions. Judgment is intact. Insight is good. Impulsivity is low. Diagnoses: [] Atwood I: [] Major depressive disorder recurrent severe without psychosis (improving; generalized anxiety disorder Atwood II: [Negative] Atwood III: [] Negative Atwood IV:[]] Primary support and school work issues Plan: [] Patient will continue the behavioral health IOP program as the structure, support, education, individual and group therapy seem to be benefiting her and are preventing worsening of her symptoms. The patient felt safe during the interview and if at any time she does not feel safe she will let us know or go to the emergency room. The risks, options, possible side effects and complications of the medications were discussed with the patient and she understands and accepts these. She agrees to continue her Zoloft 100 mg p.o. daily. And she will is encouraged to take the Benadryl 25 to 50 mg p.o. nightly as needed. A prescription was called in for vitamin D2 50,000 IU p.o. once weekly. Number 4 tablets with 2 refills. I will see the patient in follow-up in 2 weeks or as needed. The patient will continue to follow-up with outpatient providers.
--- NOTE | 2019-08-30 09:06 | BH.SGPN.GN ---
Behaviors/Verbalizations/Mental Status: []Client alert and oriented, casual dress, hygiene tended to. Eye contact good. Motor activity appropriate. Speech within normal limits. Affect congruent, mood euthymic and positive. Thoughts linear, logical, no signs of hallucinations or delusions. Reviewed client?s symptom tracker, pt denies current suicidal thoughts or intention to date. Client Response/Progress/Benefit: []Pt responded well to session AEB pt sharing thoughts and feelings openly and listening attentively to peers. Provided supportive feedback throughout and appeared to connect with fellow participants. Pt reported mental health positive as being able to spend time with a healthy support rather than isolate yesterday. Pt identified additional mental health win as making plans to go for a hike after group today. Pt stated it felt positive to be able to make plans and is feeling more present and able to enjoy the moment as a result of increased skill application. Pt stated current stressor is figuring out how to talk with some of her more toxic friends about setting boundaries. Pt to continue IOP level of care to improve depression management, continue to improve consistent use of healthy coping, and prevent decompensation. Narrative Note: []
--- NOTE | 2019-08-30 10:13 | BH.SGPN.GN ---
Behaviors/Verbalizations/Mental Status: []Client alert and oriented, casual dress, hygiene tended to. Eye contact good. Motor activity appropriate. Speech within normal limits. Affect congruent, mood euthymic. Thoughts linear, logical, no signs of hallucinations or delusions. Client Response/Progress/Benefit: []Pt active participant throughout group session AEB pt providing input throughout and listening attentively to others. Pt stated having support system helps provide reassurance that she is doing well in a certain area and can help her see a different perspective. Pt reported not wanting to admit she is having problems which becomes a barrier to reaching out to help. Pt stated when she is not motivated, she doesn?t even attempt to reach out for support. Pt shared her support people have awareness of her warning signs so will be there for her or check-in with her. Progress noted with pt demonstrating increased self-awareness. Pt to continue IOP to continue use of healthy coping, increase self-confidence, and prevent decompensation. Narrative Note: []
--- NOTE | 2019-08-30 11:14 | BH.SGPN.GN ---
Behaviors/Verbalizations/Mental Status: []Client alert and oriented, casually dressed and groomed. Eye contact good. Motor activity appropriate. Speech within normal limits. Affect unable to gather due to wearing a mask as a precaution for COVID-19, mood euthymic. Thoughts linear, logical, no signs of hallucinations or delusions. Client Response/Progress/Benefit: []Client an active participant AEB taking notes and sharing during the group discussion. Client participated in group discussion about the different types of support and benefits different types of support can provide. Client identified she would like to increase social supports in the area of personal support by reaching out to her brothers. Client stated she wants to spend more time with her brothers and hopes this strengthens their relationship. Client shared this will help client have less stress, feel like she belongs, and feel relief. Client reported her barriers to seeking this support are not knowing what to say and feeling like there is not a right time. Client receptive to ideas for overcoming these barriers and reminding herself that doing the anxious thing has benefits. Appeared to benefit from identifying the type of support client wants to improve and identifying ways to work towards improving this support. Will continue IOP tx to promote gains in using healthy coping skills, further decrease intensity of symptoms, and improve overall functioning. Narrative Note: []
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
--- NOTE | 2019-09-05 15:32 | BH.COMM ---
Communication Note - Communication with Client Communication Note: Therapist spoke with client's mother on the phone about client returning to work. Client's mother reported client will be unable to return to IOP due to her long hours. Client's mother stated client has made significant progress and described client as like a different daughter...it's night and day. Therapist to call client with options for outpatient counseling to better accommodate her work schedule.
--- NOTE | 2019-09-07 13:46 | BH.DS_ITS ---
Discharge Summary - Demographics Date of Admission:: 08/10/19 Discharge Date: 09/07/19 Presenting Problems at Admission:: Client is a 19-year-old female with a history of depression and anxiety. Client was referred to [facility] by her mother due to worsening anxiety and depression that was impacting client functioning. Client shared since starting college last year, her anxiety and depression have significantly worsened. Client reported her first semester of college she had difficulty leaving her dorm room for class or social events. Client shared she would sit in her room and have constant negative thoughts. Client's grades became impacted by client's isolation and client decided to transfer schools to move closer to home. Client transferred to a college closer to home, but her symptoms of depression and anxiety continued to worsen. Client endorsed a depressed mood, passive thoughts of , lack of motivation, lack of concentration, lack of energy, anhedonia, and increased sleep. Client also reported feeling disconnected and hopeless. Additionally, client reported symptoms of social anxiety and anxiety. Client endorsed daily ruminations, history of panic attacks, racing thoughts, over-analyzing, and avoidance behaviors. Client's symptoms were impacting her ability to function at her baseline as well as complete daily tasks. Discharge Diagnoses:: Major depressive disorder recurrent, severe without psychosis F 33.2; generalized anxiety disorder Reason for Discharge:: Client returned to work and could no longer commit to the [facility] level of care schedule. Client self-reported significant improvement in symptom reduction sharing, a night and day difference. - Treatment Progress During Treatment & Response: Client responded well to treatment as she was an active group member and was engaged in individual sessions. Client did not complete IOP due to returning to work, but she was able to make significant progress in four weeks. Client?s mother shared client?s progress was ?like night and day? and that she felt like she had a different daughter. Client self- reported communicating her emotions more with family and friends and having better moods. Client also self-reported fewer depressive symptoms, less anxiety, healthier boundaries, and increased ability to challenge negative thoughts. Client was an active group member who often contributed to discussions and provided supportive feedback to peers. In individual sessions, client was engaged and receptive to learning new coping skills. During client?s last week in [facility], so was reporting being more social and more productive at home. Client felt like she was able to return to work which she could not do at admission. Client?s affect also improved, and she was more consistently reporting mental health wins. Client did not complete a discharge DSM-5, so therapist was unable to gather client?s scores. Issues Still to be Addressed:: Client self-reported history of minimization and lack of self-care, so she can benefit from continuing to verbalize her emotions and take time for her mental health. Client can also benefit from continued work on challenging distortions, trauma processing, boundary setting, and identifying personal strengths. Client also wants to work on being independent and eventually living on her own with less anxiety and depression. Discharge Recommendations/Instructions:: Client unable to come in for discharge, therefore an aftercare plan was not created with client. Therapist provided client with different options for outpatient counseling including; [facility], [facility], and [facility]. Client plans to get her medications refilled by her PCP. Discharge Handout: Complete Discharge Handout with client on aftercare options and continuity of care.
--- NOTE | 2019-09-07 14:35 | BH.COMM ---
Communication Note - Communication with Client Communication Note: Therapist gave client options for outpatient counseling that would better accommodate client's work schedule. Options for outpatient counseling included; [facility], [facility], and [facility].
== END 2019-09-07 14:00 | disposition home or self-care (01) ==
LOC: BHIOP 09:00
PROVIDERS: PCP Internal Medicine; Referring Provider Psychiatry & Neurology Psychiatry; Visit Provider Psychiatry & Neurology Psychiatry
DX: F33.2 Major depressive disorder, recurrent severe without psychotic features (principal); F41.1 Generalized anxiety disorder; Z79.899 Other long term (current) drug therapy
CPT/HCPCS: H0035; 90834; 90853

== ENCOUNTER 2020-05-12 09:00 | Outpatient (RCR) | payer BC, SELFPAY ==
--- NOTE | 2020-05-12 10:00 | BH.SGPN.GN ---
Behaviors/Verbalizations/Mental Status: []Client alert and oriented, casually dressed and appropriately groomed. Eye contact good. Motor activity appropriate. Speech within normal limits. Affect congruent, mood euthymic and anxious. Thoughts linear, logical, no signs of hallucinations or delusions. Client Response/Progress/Benefit: []Client engaged during session AEB taking notes, providing input, and listening attentively to others. Client worked with peers on defining goals and brainstorming the benefits of goal setting. Client shared her benefit to accomplishing goals is ?it gives you something to work towards.? Contributed as group discussed the barriers that keep people from either setting goals or following through with goals. Client identified her personal barrier as ?time.? Client attentive during psychoeducation on SMART goals. Appeared to benefit from learning the mental health benefits of setting goals using SMART criteria. Progress noted as client was vulnerable and willing to discussion challenges within the group as it was her first day in IOP program. Will continue IOP to increase the use of healthy coping skills and prevent decompensation Narrative Note: []
--- NOTE | 2020-05-12 11:20 | BH.SGPN.GN ---
Behaviors/Verbalizations/Mental Status: []Eye contact is fair. Alert and oriented. Motor activity is appropriate. Appearance is casual. grooming is appropriate. Speech is Appropriate. Mood is dysthymic. Affect is constricted. Thoughts are linear and logical. No evidence of psychosis or hallucinations. Client Response/Progress/Benefit: []Client was engaged during discussion, did well to complete activity and process with the group. Client was willing to complete the worksheet in which she was challenged to develop a personal SMART goal. Client chose the goal write 5 positive affirmations every morning for two weeks. Client stated this goal will help set a positive tone for her day. Client identified her barriers which included: forget, laziness, and no time. Client receptive to identifying solutions for these barriers and willing to begin working on this goal. Benefited from this group by developing a short-term SMART goal related to mental health. Client's first day in IOP. Will continue IOP tx to increase healthy coping skills, improve daily functioning, and prevent decompensation. Narrative Note: []
--- NOTE | 2020-05-12 14:03 | BH.COMM ---
Communication Note - Communication with Client Communication Note: Met with pt to complete initial paperwork. No changes since pre-admission screening. Completed [place] Suicide Screening with low risk. Denies any SI in the past month. Reports longstanding fleeting SI with thoughts of methods, however no hx of attempts. Reports that the thoughts occurred 2 times weekly, and were easy to control. Does have access to a weapon however it is kept safe in the house. Does not present as imminent danger to herself due to no active SI, plan, intent, or hx of attempts. Future-oriented.
--- NOTE | 2020-05-12 14:07 | BH.COMM ---
Communication Note - Communication with Client Communication Note: Met with client to discuss any concerns or questions from group sessions today. Client did not have any questions or concerns. Discussed weekly work schedule to find a balance to come to IOP groups on Tuesday and Wednesdays.
--- NOTE | 2020-05-14 09:05 | BH.SGPN.GN ---
Behaviors/Verbalizations/Mental Status: []Alert and oriented, casually dressed and groomed. Eye contact good. Motor activity appropriate. Speech within normal limits. Affect constricted, mood dysthymic. Thoughts linear, no signs of hallucinations or delusions. Clients daily symptom tracker scores indicate no risk for SI, plan, or intent. Client Response/Progress/Benefit: []Client responded well to session, providing supportive statements to peers. Client reports feeling confused this morning. Client stated not having a routine after work has been one of her biggest stressors. Client shared I just come home from work and lay in my bed all night. The group offered ideas for client to try and client was receptive. 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 Appeared to benefit from connecting with peers and processing stressors. Will continue IOP tx to prevent decompensation, reduce negative thinking, and improve daily functioning. Narrative Note: []
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
--- NOTE | 2020-05-14 12:55 | BH.PSY.EVA_ITS ---
Initial Treatment Plan - Patient Information Visit Information: ADMISSION DATE: EXPECTED LOS: 4-6 weeks - Problems/Symptoms Problem #1:: Depression Symptom:: Sadness, worthlessness, hopelessness, apathy, guilt, self-harm though ts Problem #2:: Anxiety Symptom:: Ruminations, panic attacks
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
--- NOTE | 2020-05-14 13:33 | BH.MTP_ITS ---
Master Treatment Plan - Patient Information Program Physician:: Dr. Hawa Pete Primary Therapist:: Heather BALLARD - Psychiatric Diagnoses Psychiatric Diagnoses:: Major depressive disorder recurrent, severe without psychosis F 33.2; generalized anxiety disorder Diagnosis Code(s):: F 33.2 - Estimated LOS Estimated LOS (in weeks):: 6 Problem/Goal #1 - Problem/Goal #1 Stated Goal:: Client will decrease depressive symptoms, isolation, negative self-talk, and thoughts of self-harm due to major depression disorder. Description of Barriers: Client?s symptoms are currently impacting her social, familial, and educational functioning. Client reports avoidance behaviors and isolation. Client has a hard time verbalizing her emotions and needs which as a result reinforces low self-esteem and negative thinking. Client reports she has a hard time setting boundaries and often worries what other people think of her which leads to rumination. Client reports loneliness which makes client want to enter new relationships when she is not emotionally ready. Functional Impact: Client is a 19-year-old female with a history of MDD and BING. Client previously attended [facility] from 08/10/19-09/07/19 but she did not finish the program. Client was self-referred back to [facility] due to worsening depression which is impacting her work and relationships. Client reported two months ago client started a new job and initially liked it, but then it became a toxic environment for client due to issues with co-workers. Client currently endorses a depressed mood with anhedonia, apathy, lack of energy, increased sleep, isolative behaviors, lack of concentration, and feelings of worthlessness. Client reports feeling on the verge of crying every day. Client states she goes to work and then lays in bed for the rest of the night. Client also uses marijuana 3x a week to help with anxiety. Client is not suicidal, but she has been having thoughts of self-harm. Client's symptoms have been significantly impacting her overall functioning. Goal Relevant Strengths/Supports: Client is a kind, intelligent, and receptive person who is motivated to improve her mental health symptoms. Client has support from her mother and best friend. Client also has knowledge of healthy coping skills from her previous experience in [facility]. - Objectives Objective #1 Stated Objective: Client will learn and utilize 2-3 healthy coping strategies to better manage depressive symptoms as shown by a reduced DSM-5 scores for depression. Interventions: Through group and individual sessions, therapist will help client identify triggers and warning signs of depression. Therapist will teach client various coping skills to manage her symptoms and give client tangible resources to use to regulate emotions. Therapist will use cognitive restructuring techniques and help client gain awareness of negative thoughts that reinforce low self-esteem and depression. Therapist will provide psychoeducation on maintenance cycles and help client learn ways to break unhealthy maintenance cycles. Therapist will help client learn skills to be more assertive. Discharge Criteria: Client will have met this goal when she can report learning and using at least 2 coping skills to manage depressive symptoms. Additionally, client will have met this goal when her depressive symptoms have reduced on the DSM-5 scale. Target Date: 06/23/20 Review Date: 06/09/20 Status: open Objective #2 Stated Objective: Client will identify at least 2-3 negative self-talk messages used to reinforce negative core beliefs and replace thoughts with positive, realistic messages. Interventions: Therapist will help client identify distorted, negative beliefs about self and replace with more realistic, affirmative messages. Therapist will use CBT to help client increase insight to the connection between thoughts, emotions, and behaviors. Therapist will also use dialectical thinking to help client combat all or nothing expectations. Therapist will encourage client to practice thought challenging and communicating with her close supports more regularly. Discharge Criteria: Client will have achieved this goal when can verbalize at least 2 negative self-talk messages and effectively replace those thoughts with affirmative messages. Target Date: 06/23/20 Review Date: 06/09/20 Status: open Problem/Goal #2 - Problem/Goal #2 Stated Goal:: Client will decrease intensity, duration, and frequency of anxiety so that daily functioning is not impaired Description of Barriers: Client?s symptoms are currently impacting her social, familial, and educational functioning. Client reports avoidance behaviors and isolation. Client has a hard time verbalizing her emotions and needs which as a result reinforces low self-esteem and negative thinking. Client reports she has a hard time setting boundaries and often worries what other people think of her which leads to rumination. Client reports loneliness which makes client want to enter new relationships when she is not emotionally ready. Functional Impact: Client is a 19-year-old female with a history of MDD and BING. Client previously attended [facility] from 08/10/19-09/07/19 but she did not finish the program. Client was self-referred back to [facility] due to worsening depression which is impacting her work and relationships. Client reported two months ago client started a new job and initially liked it, but then it became a toxic environment for client due to issues with co-workers. Client currently endorses a depressed mood with anhedonia, apathy, lack of energy, increased sleep, isolative behaviors, lack of concentration, and feelings of worthlessness. Client reports feeling on the verge of crying every day. Client states she goes to work and then lays in bed for the rest of the night. Client also uses marijuana 3x a week to help with anxiety. Client is not suicidal, but she has been having thoughts of self-harm. Client's symptoms have been significantly impacting her overall functioning. Goal Relevant Strengths/Supports: Client is a kind, intelligent, and receptive person who is motivated to improve her mental health symptoms. Client has support from her mother and best friend. Client also has knowledge of healthy coping skills from her previous experience in [facility]. - Objectives Objective #1 Stated Objective: Client will identify 2-3 anxiety triggers and 2 calming coping skills to reduce anxiety as shown by decreased DSM-5 cross cutting symptom measure scores. Interventions: Therapist will help client increase awareness of anxiety triggers and educate client on personal core beliefs associated with anxiety. Therapist will teach client various calming and mindfulness strategies to promote emot ional regulation and reduction of anxiety. Therapist will encourage client to implement healthy coping skills on a regular basis and increase self-care in all areas. Discharge Criteria: Client will have accomplished this goal when can report at least 2 triggers for anxiety and 2 calming strategies to manage symptoms. Additionally, client will have accomplished this goal when she can report reduced DSM-5 cross cutting symptoms for anxiety. Target Date: 06/23/20 Review Date: 06/09/20 Status: open Objective #2 Stated Objective: Client will identify 2-3 cognitive distortions that lead to rumination and passive communication and learn 2-3 ways to manage these thoughts to better manage anxiety and stress. Interventions: Therapist will provide education on the most common cognitive distortions and teach client the connection between thoughts, emotions, and feelings. Therapist will assist client in identifying, challenging, and replacing dysfunctional thoughts with positive, more realistic thoughts. Therapist will use CBT and DBT techniques to help client gain awareness of thinking errors and learn how to more effectively handle negative thoughts. Discharge Criteria: Client will have accomplished this goal when can identify at least 2 cognitive distortions and at least 2 coping skills to manage negative thoughts. Target Date: 06/23/20 Review Date: 06/09/20 Status: open
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
--- NOTE | 2020-05-19 10:03 | BH.SGPN.GN ---
This psychotherapy group was provided via telehealth using two-way, real-time interactive telecommunication technology between the patients and the provider.?The interactive telecommunication technology included audio and video.? ?The patient was offered telemedicine as an option for care delivery during the COVID-19 pandemic and consented to this option. ?Patient location: [place] ?Provider located at [facility] Behaviors/Verbalizations/Mental Status: []Client alert and oriented, casual dress, hygiene tended to. Eye contact fair. Motor activity appropriate. Speech within normal limits. Affect constricted, mood depressed. Thoughts linear, logical, no signs of hallucinations or delusions. Client Response/Progress/Benefit: []Pt responded well to session AEB pt contributing to session and listening attentively to others. Pt connected with the topic of resilience as well as the different things people have to ?juggle? in life. Discussed the positive and negative forces in life that impact a person?s resilience. Pt agreed with peers that one can learn how to become more resilient. Pt contributed to small group discussion on traits that promote resilience. Pt?s group discussed acceptance, self-awareness, and hopeful outlook as strategies to increase resilience. Pt seemed to benefit from increasing awareness of strategies to increase personal resilience. Progress limited, but client?s attendance is consistent so far. Will continue IOP tx to prevent decompensation, reduce negative thinking, and promote mood stability. Narrative Note: []
--- NOTE | 2020-05-19 11:00 | BH.SGPN.GN ---
This psychotherapy group was provided via telehealth using two-way, real-time interactive telecommunication technology between the patients and the provider. The interactive telecommunication technology included audio and video. The patient was offered telemedicine as an option for care delivery during the COVID-19 pandemic and consented to this option. Patient location: [place] Provider located at [facility] Behaviors/Verbalizations/Mental Status: []Client alert and oriented, casual dress, hygiene tended to. Eye contact fair. Motor activity appropriate. Speech within normal limits. Affect constricted, mood anxious. Thoughts linear, logical, no signs of hallucinations or delusions. Client Response/Progress/Benefit: [] Client responded well to session AEB contributing to discussion. Client participated in the discussion of how each resiliency component can help increase personal resiliency. Client identified current resiliency traits client currently possesses and how these can continue to help client in treatment. Client identified personal resilience traits as self-awareness and having healthy connections. Client?s goal is to keep things into perspective by slowing thoughts down and using affirmations to remind self-worth. Progress noted as client understands the importance of being resilient through daily challenges. Benefitted from group as client increased self-awareness of strengths and weaknesses of resiliency. Will continue IOP to reduce negative thoughts, learn healthy coping skills, and increase self-confidence. Narrative Note: []
--- NOTE | 2020-05-21 11:15 | BH.SGPN.GN ---
This psychotherapy group was provided via telehealth using two-way, real-time interactive telecommunication technology between the patients and the provider.?The interactive telecommunication technology included audio and video.? ?The patient was offered telemedicine as an option for care delivery during the COVID-19 pandemic and consented to this option. ?Patient location: [place] ?Provider located at [facility] Behaviors/Verbalizations/Mental Status: []Client alert and oriented, neatly dressed and groomed. Eye contact good. Motor activity appropriate. Speech within normal limits. Affect constricted, mood euthymic. Thoughts linear, logical, no signs of hallucinations or delusions. Client Response/Progress/Benefit: []Client was an active participant in group discussion and took notes throughout. Attentive during psychoeducation on mindfulness coping skills and their impact on mental health wellness. The group practiced deep breathing and progressive muscle relaxation. Client was able to identify self-soothing and mind-based coping skills which included: 5-senses, meditation, deep breathing, journaling, and body scan. Client would like to work on journaling today to manage anxiety. Client was receptive to strategies to help follow through with journaling. Appeared to benefit from practicing in the moment coping skills. Progress noted in client?s self-report of using opposite action yesterday, but client continues to struggle with lack of motivation and isolative behaviors. continue IOP tx to prevent decompensation, improve daily functioning, and reduce negative thinking. Narrative Note: []
--- NOTE | 2020-05-21 12:45 | BH.NA_ITS ---
Physical Data - Height/Weight Height: 1.75 m Weight:: 58.967 kg Weight in Pounds: 130.0 lbs Current Medication Compliance - Medication Compliance Do you take your medication as prescribed?: Yes Nutritional History - Appetite Nutritional Instructions:: If client shows signs of a swallowing problem, weight change of 10 pounds or more in the last month, or is on a diabetic diet, the physician will review and request a dietitian consult, as appropriate. All unintentional weight loss will be referred to the physician for decision on need for dietitian consult. Describe your appetite:: Fair, Poor Additional nutritional information:: Client states her overall appetite is poor. Client states GI issues have been ongoing for her and she is awaiting colonoscopy/endoscopy. Functional Assessment - Sleep Pattern Describe any problems with sleeping: Client states her sleep is good, and that she sleeps 8 hours per night. - Activities Motor Activity:: Functional Sensory/Communication Assess - Communication Problems Do you have difficulty understanding what people are saying?: No Learning Assessment - Education What is your level of education?: Some College Medical Problems/History - Gastrointestinal Conditions Gastrointestinal: Other (See comments) Comments:: ongoing GI issues- awaiting colonoscopy/endoscopy. - Pain Assessment Do you have acute or chronic pain?: No Surgical History - Surgical History Have you had any surgeries? If so, list type and date:: Yes - tonsilectomy Substance Abuse - Substance Abuse Please describe substance abuse in the last 30 days:: Client states she drinks alcohol about once per week. Client denies tobacco use. Client states she uses marijuana about 2-3 times per week. Mental Status Summary - Mental Status Significant Findings/Observations on Appearance and Mood:: Client is met with via telehealth. Client is alert and oriented x 4. Client appears casually groomed with good hygiene. Client's voice has regular rate. Client with appropriate affect. Client makes logical associations. Client denies delusions/hallucinations. Client denies SI. Suicide Assessment - Suicidal Ideation Are you currently or have you been suicidal in the past?: Yes - denies SI this day Suicidal Intentional Rating Scale (SIRS): Suicidal thoughts (past) Physician Notification: If Active suicidal thoughts/Will not contract for safety is checked, contact physician and document in the Physician Notification section below. Past Psychiatric History - MH Treatment Hx Past Psychiatric Medications:: None. Age of first mental health symptoms: Client states she was diagnosed with anxiety and depression about 2 years ago. Describe (age, circumstance, etc) any past hospitalizations: None. Fall Risk Assessment - Age Age: Less than 60 - Mental Status Mental Status: Willing & able to ask for assistance when needed - Physical Status Physical Status: No problems - Impairments Impairments: None - Elimination Elimination: Continent AND independent - Gait or Balance Gait or Balance: Walks independently - Hx of Falls History of falls in the past 6 months: No known history - Medications/Substances Psychotropics:: Antidepressants Medications/substances used within the past 24 hours or ordered to administer: 1-2 of the medications/substances listed above - Total Score Total Points:: 1 RN Summary of Impressions - Impressions Recommendations: Include psychiatric and medical issues, treatment planning re commendations, and discharge planning needs. Impressions: Psychiatric Issues: Major depressive disorder, recurrent, severe without psychosis; generalized anxiety disorder; cluster B traits - Level of Care How do the client's current symptoms and functional deficits support need for this level of care?: Client was in IOP in July 2019 and referred self back to IOP program at this time. Client states over the last several weeks, she has felt more depressed. Client states she changed jobs and feels uncomfortable with the people she works with now. Client endorses isolation, ruminating, crying, decreased function at work, anhedonia and decreased energy. Client denies SI. IOP will promote gains and prevent further decompensation while providing social support and skills training.
--- NOTE | 2020-05-21 14:33 | BH.MDN ---
Multi-Disciplinary Note - Note 30-min Individual Time Started:: 12:10 Date: 05/21/20 Purpose of session/treatment goals addressed:: The purpose of this session was to work on goal #1 objective #1 of client's tx plan. Another goal was to discuss strategies to increase self-accountability and overcome self-sabotage. Symptoms/Behavior:: This counseling session was provided via telehealth using two-way, real-time interactive telecommunication technology between the patient and the clinician. The interactive telecommunication technology included audio and video. The patient was offered telehealth as an option for care delivery during the COVID-19 pandemic and consented to this option. Patient location: [place]. Provider located at [facility] Eye Contact:: Good Motor Activity:: Appropriate Appearance:: Neat Speech:: Appropriate Mood:: Euthymic, Anxious Affect:: Congruent Thoughts:: Linear, Logical, No evidence of hallucinations/delusions noted Staff Interventions:: Therapist provided psychoeducation on maintenance cycles and helped client identify her unhealthy maintenance cycles. Therapist explored client's barriers, unhelpful thought patterns, and behaviors that reinforce maintenance cycles. Therapist and client problem-solved strategies to increase consistency with journaling to increase self-awareness. Client Response:: Client responded well to session, open to meeting with therapist. Client stated that she has made progress in some areas including using opposite action last night. Client reported opposite action helped client connect with her dad and not isolate which resulted in positive feelings. Client shared she is currently struggling with following through with journaling. Barriers included not knowing what to write about and feeling weird. Discussed other journaling approaches such as doing a mood and trigger tracker with reflections. Client receptive to this idea and shared it could help client become more aware of her emotions and the situations that trigger them. Client also liked the idea of downloading a mood tracker sean rather than writing as it will hopefully increase consistency. Client also brought up self-sabotaging behaviors that have been holding her back such as canceling plans just because and making excuses. Client shared I keep telling myself I will do all these things when I move, but that could be a long time. Client practiced thought challenging to remind herself that behaviors sometimes needs to proceed emotions. Risks/Concerns:: Client denies any suicidal ideations, plan, or intent as of 05/21/20. Future oriented and positive. Progress Toward Goals/Plan:: Client appears to be making some progress towards her goals AEB self-report of practicing opposite action and gaining more awareness. Client reports self-sabotaging behaviors that could hinder progress, but client has more awareness of these now. Continues to endorse a depressed mood, lack of motivation, low energy, isolative behaviors, and negative thinking. Will continue IOP tx to promote mood stability, increase use of healthy coping skills, and reduce isolative behaviors. Time Stopped:: 12:45
== END 2020-05-25 23:59 ==
LOC: BHIOP 09:00
PROVIDERS: PCP Family Medicine; Referring Provider Psychiatry & Neurology Psychiatry; Visit Provider Psychiatry & Neurology Psychiatry
DX: F33.2 Major depressive disorder, recurrent severe without psychotic features (principal); F41.1 Generalized anxiety disorder; Z79.899 Other long term (current) drug therapy; F12.90 Cannabis use, unspecified, uncomplicated; Z81.8 Family history of other mental and behavioral disorders
CPT/HCPCS: H0035; S9480; 90832; 90837; 90853

== ENCOUNTER 2020-05-26 09:00 | Outpatient (RCR) | payer BC, SELFPAY ==
--- NOTE | 2020-05-26 09:00 | BH.SGPN.GN ---
This psychotherapy group was provided via telehealth using two-way, real-time interactive telecommunication technology between the patients and the provider. The interactive telecommunication technology included audio and video. The patient was offered telemedicine as an option for care delivery during the COVID-19 pandemic and consented to this option. Patient location: [place] Provider located at [facility] Behaviors/Verbalizations/Mental Status: []Client alert and oriented, casually dressed. Eye contact fair. Motor activity appropriate. Speech within normal limits. Affect congruent, mood anxious and euthymic. Thoughts linear, logical, no signs of hallucinations or delusions. Reviewed client?s symptom tracker, no risk or plan for suicide ideation as of 05/26/20. Client Response/Progress/Benefit: []Client responded well to session, engaged throughout and participated in group discussion. Client reported feeling ?excited? from her check-in as she reported having a good weekend of making new friends and stepping out of her comfort zone. Client shared she was anxious to meet new people but practiced opposite action and healthy distraction such as journaling and music to calm anxiety. Client?s goal is to increase self-awareness by journaling. Client reported feeling anxious as her parents were leaving the state for a month. Benefited from group as other group members gave positive feedback and insight on what she can do for herself. Progress noted as client reports using healthy coping skills to decrease anxiety and depression. Will continue IOP to continue the use of healthy coping skills, challenge negative thoughts, and improve mood. Narrative Note: []
--- NOTE | 2020-05-26 10:12 | BH.SGPN.GN ---
This psychotherapy group was provided via telehealth using two-way, real-time interactive telecommunication technology between the patients and the provider.?The interactive telecommunication technology included audio and video.? ?The patient was offered telemedicine as an option for care delivery during the COVID-19 pandemic and consented to this option. ?Patient location: [place] ?Provider located at [facility] Behaviors/Verbalizations/Mental Status: []Client alert and oriented, neatly dressed and groomed. Eye contact good. Motor activity appropriate. Speech within normal limits. Affect congruent, mood euthymic. Thoughts linear, logical, no signs of hallucinations or delusions. Client Response/Progress/Benefit: []Client engaged participant AEB client taking notes and listening attentively to peers. Group discussed the quotes as well as unhealthy coping skills. Group gave examples such as: alcohol, avoidance, taking responsibility for others, and minimizing. The group stated unhealthy coping skills tend to be easy, habitual, and temporary relief. Client was quiet during discussion, but frequently nodded at peers? comments. Client participated in the group activity and connected that a healthy foundation of coping skills is composed of healthy internal and external coping skills. Client seemed to benefit from increased awareness of the importance of increasing healthy coping skills and consequences of utilizing unhealthy coping skills. Client reports progress with using journaling and using opposite action, but continues to struggle with low self-esteem. Will continue IOP tx to prevent decompensation, increase positive view of self, and reduce negative thinking. Narrative Note: []
--- NOTE | 2020-05-26 11:15 | BH.SGPN.GN ---
This psychotherapy group was provided via telehealth using two-way, real-time interactive telecommunication technology between the patients and the provider.?The interactive telecommunication technology included audio and video.? ?The patient was offered telemedicine as an option for care delivery during the COVID-19 pandemic and consented to this option. ?Patient location: [place] ?Provider located at [facility] Behaviors/Verbalizations/Mental Status: []Client alert and oriented, casual dress, hygiene tended to. Eye contact fair. Motor activity appropriate. Speech within normal limits. Affect constricted, mood dysthymic. Thoughts linear, logical, no signs of hallucinations or delusions. Client Response/Progress/Benefit: []Client responded well to session AEB client listening to peers and engaging in discussion. Client reported she relies on her external supports and wants to work on improving internal healthy coping skill. Group discussed the different categories of coping skills which included distraction, emotional release, grounding, self-love, and thought challenging. Client participated in creating a coping skills ?menu? from the five categories of coping skills. Client's coping skill menu included: breathing, hiking, listening to music, journaling, and venting to others. Appeared to benefit from increasing repertoire of healthy coping skills. Will continue tx to increase healthy coping skills, decrease isolative behaviors and prevent decompensation. Narrative Note: []
--- NOTE | 2020-05-26 14:03 | BH.MDN ---
Multi-Disciplinary Note - Note 45-min Individual Time Started:: 12:16 Date: 05/26/20 Purpose of session/treatment goals addressed:: The purpose of this session was to work on goal #2 of client's tx plan. Another goal was to review healthy relationship traits and reflection techniques. Symptoms/Behavior:: This psychotherapy session was provided via telehealth using two-way, real-time interactive telecommunication technology between the patient and the provider. The interactive telecommunication technology included audio and video. The patient was offered telemedicine as an option for care delivery during the COVID-19 pandemic and consented to this option. Patient location: [place]. Provider located at [facility] Eye Contact:: Good Motor Activity:: Appropriate Appearance:: Casual Speech:: Appropriate Mood:: Euthymic, Anxious Affect:: Congruent Thoughts:: Other - Ruminating, No evidence of hallucinations/delusions noted Staff Interventions:: Therapist used active listening and offered emotional support while exploring client?s current stressors and triggers. Therapist assisted client in identifying, challenging, and replacing dysfunctional thoughts with positive, more realistic thoughts. Therapist provided psychoeducation on defense mechanisms that reinforce anxiety such as projection. Therapist gave client homework to promote self-reflection. Client Response:: Client responded well to session, open to meeting with therapist. Client reports progress with journaling which client has found to be helpful. Client reports she is currently feeling anxious and overthinking. Client reports this was triggered by not hearing back from a brittany she hung out with this weekend. Client reports she is fearful to get her hopes up with this brittany and stated that she ?never knows what to say.? Client has been in several unhealthy relationships in the past, so client is fearful that she will ?mess this one up too.? Receptive to gentle thought challenging as well as discussion on the importance of self-reflection. Client gained awareness that she often projects her emotions onto others in social situations which leads to mind-reading and shutting down. Client also gained awareness that being lonely tends to make client enter new relationships quickly and overlook flaws. Client receptive to exploring personal boundaries within relationships and identifying what a healthy relationship looks with. Client also encouraged to reflect on what a healthy self looks like with or without a relationship. Risks/Concerns:: Client is future oriented and positive. Denies any suicidal ideations, plan, or intent as of 05/26/20. Progress Toward Goals/Plan:: Client reports progress towards tx goals AEB client journaling daily and being more social. Client continues to struggle with social anxiety, low self-esteem, loneliness, and ?overthinking everything.? Client?s energy is improving, but she continues to struggle with lack of motivation and anhedonia. Client receptive to homework and practicing thought challenging to combat distortions. Will continue IOP tx to promote the use of health coping skills, improve self-worth, and increase mood stability. Time Stopped:: 13:00
--- NOTE | 2020-06-04 09:05 | BH.SGPN.GN ---
Behaviors/Verbalizations/Mental Status: [] Eye contact is good. Motor activity is appropriate. Appearance is casual. Speech is Appropriate. Mood is anxious. Affect is congruent. Thoughts are linear and logical. No evidence of psychosis. Reviewed daily check in sheet and no reports of suicidal ideations or intent. Client Response/Progress/Benefit: [] Pt was an active participant in group discussion on the effects of caffeine on anxiety. Attentive. Provided appropriate feedback. Emotion for today is anxious. Unable to identify a certain triggers stating ? I?m anxious all the time?. Reports overall in the past week she has noted improved mood. Increase in communication with support, has a more stable routine, and reports decreased stressors. She recently started a new relationship and feels anxious and unsure about this. Shared that talking about herself to new people is very anxiety-producing. Progress noted per pt. Benefited from group discussion, support, and encouragement. Will continue in IOP to maintain gains, prevent decompensation, and improve functioning. Narrative Note: []
--- NOTE | 2020-06-04 10:00 | BH.SGPN.GN ---
Behaviors/Verbalizations/Mental Status: []Client alert and oriented, casually dressed and groomed. Eye contact good. Motor activity appropriate. Speech within normal limits. Affect constricted, mood dysthymic. Thoughts linear, logical, no signs of hallucinations or delusions. Client Response/Progress/Benefit: []Client engaged throughout session AEB providing input during discussion. Appeared to connect with discussion on crisis and how unhealthy coping could result in a personal crisis. Client shared sometimes we look for reassurance in the wrong places. Group reflected on the importance of having awareness of personal warning signs in order to prevent reaching crisis point. Group identified potential warning signs for crisis and client completed the personal warning signs worksheet. Client identified personal crisis warning signs to include: lack of motivation, apathy, and uncontrollable worry. Client benefited from increasing awareness of what leads to crisis and personal warning signs. Progress reported in reduced isolation, but client continues to struggle with verbalizing her emotions and regulating anxiety. Will continue IOP tx to prevent decompensation, reduce negative thinking, and increase confidence. Narrative Note: []
--- NOTE | 2020-06-04 11:51 | PCM.BH.PN ---
Progress Note Progress Note: History of Present Illness/Interim History: [] Patient is a 19-year-old female who is seen in follow-up at the [facility] behavioral health IOP program for depression. I last saw the patient 3 weeks ago and at that time BuSpar was added to help with her anxiety. The patient states that she feels she has improved over the past few weeks. Her anxiety is overall much decreased. She has no crying now and feels her mood is less depressed. She has much less hopelessness also. She denies worthlessness, passive thoughts of , suicidal ideation, homicidal ideation, hallucinations, delusions or bonnie. She does still have occasional thoughts of self-harm when she gets very stressed or anxious. She has pinched herself a few times. The patient still has her gastrointestinal symptoms discussed at the first visit and she has a colonoscopy scheduled on June 11, 2020. She is hopeful now and feels that some of her improvement is due to being in a new relationship which is going well and the to the fact that her new living arrangement place will soon be ready and she will be moving out of her parents house and into her new living arrangement with a roommate. Current Psychiatric Medications: [] Zoloft 100 mg p.o. daily (x1 year); BuSpar 10 mg p.o. 3 times daily (x3 weeks). Mental Status Examination: [] Patient is a 19-year-old female who appears normal for stated age and is seen wearing a mask due to the pandemic. She is casually dressed and groomed with good hygiene. She has no psychomotor agitation or retardation. Eye contact is good and speech is normal rate and rhythm and fluent with no pressure. Mood is mild Vipin depressed. Affect is constricted. Thought process is goal-directed and organized. Thought content: No evidence of suicidal ideation, homicidal ideation, hallucinations or delusions. There is some evidence of thoughts of self-harm still when she is very stressed but less than before. Impulsivity is moderate. Judgment is intact. Insight: Good. Diagnoses: [] Shawmut I: [] Major depressive disorder, recurrent, severe without psychosis; generalized anxiety disorder Shawmut II: [] Cluster B traits Shawmut III: [] GI disorder with colonoscopy scheduled for June 11, 2020 Shawmut IV:[]] Primary support, housing and school issues Plan: [] The patient will continue the IOP program at [facility] as the structure, support, education, individual and group therapy will hopefully prevent worsening of the patient's symptoms. She felt safe during the interview and if it anytime she does not feel safe she will let us know or go to the emergency room. The risks, options, possible side effects and complications of the medications were again discussed with the patient and she understands and accepts these. Zoloft dose was not changed as the Zoloft itself can be associated with a microscopic colitis and we wish to wait to see the results of the colonoscopy before adjusting her dose or her medication. She will continue the BuSpar at the current dose. She will continue to follow-up with her outpatient psychiatric and medical providers. I will see the patient in 2 weeks for follow-up.
--- NOTE | 2020-06-04 15:25 | BH.MDN_ITS ---
Multi-Disciplinary Note - Note 45-min Individual Time Started:: 12:00 Date: 06/04/20 Purpose of session/treatment goals addressed:: To address current stressors, distortions, and barriers. Another goal was to create strategies to promote self-advocacy and reduce avoidance behaviors. Eye Contact:: Good Motor Activity:: Appropriate Appearance:: Neat Speech:: Appropriate Mood:: Anxious, Dysthymic Affect:: Congruent - tearful Thoughts:: Circular, No evidence of hallucinations/delusions noted Staff Interventions:: Listened and helped client process current stressor and emotions. Used cognitive restructuring techniques to help combat negative thinking. Used motivational interviewing techniques to help client gain awareness of barriers. Assisted client in creating strategies to promote self- advocacy, reduce suppression of emotions, and improve interpersonal effectiveness skills. Client Response:: Client responded well to session, open to meeting with therapist. Client was tearful and shared she has been ruminating over an argument she had with her mother. Client reported her mother said some hurtful things in the ?heat of the moment? and client has been replaying the comments. Client shared she is struggling with feeling like her family ?has to walk on eggshells and treat me different? due to client?s mental health. After processing the situation, client able to challenge her perspective and see that her mother?s comments were likely a displaced stress response. Client acknowledged that part of the reason her family does not know what to say to client is because client does not verbalize her emotions. Client states she keeps her thoughts and feelings to herself and does not know when to address difficult situations. Client reports when she is bothered by something, client holds it in and then feels like ?its too late to address it later.? Discussed the benefits of confrontation as well as consequences of continuing to avoid confrontation. Client created strategies to promote self-advocacy and reduce a voidance. These strategies include a list of reflections to ask herself, opposite action, and tips for sharing feelings. Risks/Concerns:: Client denies any suicidal ideations, plan, or intent as of 06/04/20. Future oriented. Progress Toward Goals/Plan:: Client reports progress in some areas such as increasing socialization and isolating less after work. However, client continues to struggle with ?overthinking everything,? verbalizing her emotions, addressing conflict, setting boundaries, and low self-esteem. Client?s reports journaling, but on a less consistent basis than last week. Client receptive to homework and willing to work on addressing issues rather than avoiding. Will continue IOP tx to prevent decompensation, increase use of coping skills, and reduce avoidance which reinforces anxiety and low self-esteem. Time Stopped:: 12:48
--- NOTE | 2020-06-09 11:45 | BH.MDN_ITS ---
Multi-Disciplinary Note - Note 30-min Individual Time Started:: 09:30 Date: 06/09/20 Purpose of session/treatment goals addressed:: The purpose of this session was to work on goal #2 of client's tx plan. Another goal was to discuss barriers to progress. Symptoms/Behavior:: This psychotherapy session was provided via telehealth using two-way, real-time interactive telecommunication technology between the patient and the provider. The interactive telecommunication technology included audio and video. The patient was offered telemedicine as an option for care delivery during the COVID-19 pandemic and consented to this option. Patient location: [place]. Provider located at [facility] Eye Contact:: Good Motor Activity:: Appropriate Appearance:: Casual Speech:: Appropriate Mood:: Anxious Affect:: Congruent Thoughts:: Linear, Logical, No evidence of hallucinations/delusions noted Staff Interventions:: Discussed progress towards goals as well as barriers to progress. Used cognitive restructuring to combat distortions reinforcing rigid boundaries and avoidance behaviors. Provided psychoeducation on the anxiety maintenance cycle and discussed ways client can break this cycle. Helped client create small goals for today. Client Response:: Client responded well to session, elected to do telehealth today due to weather. Client reports overall she feels like her depression has decreased since admission. Client continues to report reduced isolation after work, and she has been reaching out to more supports. Client has been journaling, but client admits it has been sporadic. Client shared anxiety has been her biggest issue recently. Client stated last night her anxiety got ?so bad? that client left her friend?s house at 10:30pm without communicating with him and drove to [place] to meet another friend. Client shared ?I just had to get out of there?I couldn?t sit still.? After further exploration, client able to gain insight that she has been engaging in a lot of avoidance behaviors including: urges to escape, avoiding confrontation, and lack of communication. Denies that these behaviors are triggered by being unsafe. Receptive to discussion on anxiety maintenance cycles and how avoidance reinforces anxiety. Client reports belief she understands how facing anxiety is beneficial, but client reports hesitance due to fear of confrontation and what others will think. Client set goals for today such as doing a load of laundry, taking a bath, and communicating with her friend about what happened last night. Risks/Concerns:: Client denies any suicidal ideations, plan, or intent as of 06/09/20. Future oriented. Progress Toward Goals/Plan:: Client reports belief her depression has decreased since admission, but client reports her anxiety continues to be severe. Client's anxiety and ruminations continue to interfere with client's job, family, and relationships. Client reports variable application of coping skills which may be contributing to client not seeing progress with reducing anxiety. Client receptive to practicing more opposite action and reducing avoidance behaviors. Will continue IOP tx to prevent decompensation and improve overall functioning. Time Stopped:: 10:05
--- NOTE | 2020-06-16 06:56 | BH.TPR ---
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 Client?s attendance can be variable, but client communicates well with staff and reports generalization of coping skills outside of IOP. Client has been using healthy coping skills including opposite action, journaling, spending time with supports, communication, and thought challenging. Client is an active group member who gives insight to discussion, feedback to peers, and connects the topics to her daily life. Client is engaged in her individual sessions and is mostly consistent with homework and skill utilization outside of group. Client is also receptive to encouragement from therapist to practice self-advocacy and assertive communication. Client is not yet established with aftercare and client was provided with options today. Status of Current Problems and Symptoms: Client currently struggling with stressors including: GI issues that continue to go unresolved and impact client's appetite, anxiety and restlessness, maintaining relationships, internal motivation, and reframing negative thoughts, and verbalizing thoughts and emotions. Client also has long-standing history of low self-esteem. Problem #1 Problem Name:: Pt will decrease depressive sx, isolation, and negative self-talk Status of Goals:: Objective 1- complete. Client?s DSM-5 scores for depression have decreased by 83% since admission. Client reports increased socialization, use of opposite action, and increased ability to challenge thoughts. Objective 2- complete with ongoing work encouraged. Client can identify negative thoughts and does well with assistance to combat and reframe these thoughts. Client struggles on her own to combat negative thoughts of self, but she is improving. Team Recommendations:: Client encouraged to continue working on this treatment goal to reinforce healthy coping skills, reframe negative self-talk, and establish healthy boundaries (with self and others). Client and therapist currently working on opposite action, thought challenging, and assertive communication. Client also encouraged to establish outpatient counseling. Problem #2 Problem Name:: Pt will decrease intensity, duration, and frequency of anxiety Status of Goals:: Objective 1- complete with ongoing work encouraged. Client?s DSM-5 scores for anxiety have decreased by 20% since admission. Client reports her anxiety is ?not necessarily bad? but client feels agitated and restless. Client also endorses some avoidance behaviors that she is working on reducing. Objective 2- in progress. Client is working on catching distorted thought patterns and combatting these with more realistic messages. Client also working on being more assertive and vulnerable with her supports. Team Recommendations:: Client encouraged to continue working on this treatment goal to reinforce healthy coping skills and to further decrease anxiety symptoms which will help client?s relationships and boundary setting. Client and therapist currently working on boundary setting, thought challenging, and assertive communication.
--- NOTE | 2020-06-16 10:00 | BH.SGPN.GN ---
Behaviors/Verbalizations/Mental Status: [] Client alert and oriented, neatly dressed and groomed. Eye contact good. Motor activity appropriate. Speech within normal limits. Affect congruent, mood euthymic. Thoughts linear, logical, no signs of hallucinations or delusions. Client Response/Progress/Benefit: [] Client mostly active participant AEB providing some input to discussion, taking notes, and listening attentively to peers. Group identified the benefits of having a support system such as: emotional release, ability to rebound quicker after a setback, gain perspective, and not feeling alone. Group discussed different types of support, and client noted animals as a support she is currently utilizing. Group also discussed the barriers to accessing support in which client noted connecting with past negative experiences as a barrier she struggles with. She did well to engage in the social support activity AEB providing asking for adjustments when needed, taking direction from peers, and providing encouragement. Seemed to benefit from increased awareness of potential benefits of social support. Progress noted in client?s increased engagement in group setting. Will continue IOP tx to promote gains and further reduce mental health sx. Narrative Note: []
--- NOTE | 2020-06-16 11:13 | BH.SGPN.GN ---
Behaviors/Verbalizations/Mental Status: []Client alert and oriented, neatly dressed and groomed. Eye contact good. Motor activity appropriate. Speech within normal limits. Affect congruent, mood euthymic. Thoughts linear, logical, no signs of hallucinations or delusions. Client Response/Progress/Benefit: []Client an active participant throughout AEB contributing to discussion, taking notes, and providing supportive feedback. Client participated in the group activity highlighting the various barriers to effectively utilizing supports and strategies the group used. Client participated in discussion of the four types of support (emotion, tangible, informational, and social) and gave examples for all types. Client reports wanting to work on increasing social support and plans to do this by going to the gym and continuing to be more open with her supports. Client seemed to benefit from identifying the type of support she wants to improve. Client to continue in IOP tx to promote gains, increase self-esteem, and further reduce symptoms. Narrative Note: []
--- NOTE | 2020-06-16 14:01 | BH.MDN ---
Multi-Disciplinary Note - Note 30-min Individual Time Started:: 09:25 Date: 06/16/20 Purpose of session/treatment goals addressed:: To address current stressors, progress towards tx goals, and symtpoms. Another goal was to discuss aftercare plan. Eye Contact:: Good Motor Activity:: Appropriate Appearance:: Casual Speech:: Appropriate Mood:: Euthymic Affect:: Congruent Thoughts:: Linear, Logical, No evidence of hallucinations/delusions noted Staff Interventions:: Explored current stressors using emotional support and gentle thought challenging. Encouraged personal reflection on progress and gave pt DSM-5. Reviewed communication and thought challenging strategies. Discussed options for aftercare. Client Response:: Client responded well to session, open to meeting with therapist. Client shared several positives since last session and reports feeling doing better overall. Client stated her relationships have improved over the past weeks which client contributes to being more vulnerable and openly communicating. Client reflected on progress as client disclosed to her boyfriend that she was getting treatment for mental health. Client explained that this was something she would have never done in the past, but client now sees how being open can reduce anxiety. Client also reports progress with being more social and feeling less depressed. Client shared even though she is being more vulnerable, she still worries about others judging her. Client receptive to discussion of aftercare and establishing an outpatient provider. Client will review options and follow up with therapist this week. Risks/Concerns:: Client denies any suicidal ideation, plan, or intent as of 06/16/20. Future oriented and positive. Progress Toward Goals/Plan:: Client reports progress in increased communication with supports, reduced isolation, reduced depression, and using healthier coping skills. Client still feels she struggles with anxiety, low self-esteem, assertive communication, and self-advocacy. Client will continue IOP tx for two more days and discharge next week. Client can benefit from two more sessions to establish aftercare and reinforce healthy coping skills. Time Stopped:: 09:55
--- NOTE | 2020-06-18 11:50 | PCM.BH.PN_ITS ---
Progress Note Progress Note: History of Present Illness/Interim History: [] The patient is a 19-year-old female who is seen in follow-up at the [facility] behavioral health IOP program. I last saw the patient a few weeks ago. The patient states that she feels that her mood is much less depressed and that her anxiety is much improved in the past several weeks. She feels the BuSpar continues to help with her anxiety. She had her colonoscopy and the results show that her colon was within normal limits. There now looking at her gallbladder as the source of her pain and trying to rule that out. Patient has not had any self-harm thoughts and has not engaged in any pinching or other self-harm in the past few weeks. She is looking forward to moving into her new apartment but it has to be painted for so she still waiting for that. She is at work currently and is seen by telehealth on a break from work and she feels work is going well despite the fact that it is somewhat stressful. She feels the IOP program is really helping her learn skills to manage her anxiety and other psych issues. She denies any thoughts of self-harm, suicidal ideation, homicidal ideation, hallucinations or delusions. Current Psychiatric Medications: [] Zoloft 100 mg p.o. daily (x1 year); BuSpar 10 mg p.o. 3 times daily (little over a month now). Mental Status Examination: [] Patient is seen via telehealth and is casually dressed and groomed with good hygiene. She has no psychomotor agitation or retardation. She is pleasant and cooperative during the interview. Eye contact is good and speech is normal rate and rhythm and fluent with no pressure. Mood is approaching euthymia. Affect is full and normal. Thought process is goal- directed and organized. Thought content: There is no evidence of thoughts of self-harm, homicidal or suicidal ideation. There is no evidence of hallucinations or delusions. Judgment is intact. Insight is good. Impulsivity is low. Diagnoses: [] [place] I: [] Major depressive disorder, recurrent, severe without psychosis (resolving); generalized anxiety disorder [place] II: [] Cluster B traits [place] III: [] GI discomfort but colonoscopy was normal [place] IV:[]] Primary support, housing and school issues Plan: [] The patient will continue the IOP program at [facility] as the structure, support, education, individual and group therapy will hopefully continue to benefit the patient and prevent worsening of her symptoms. She felt safe during the interview and if it anytime she does not feel safe she will let us know or go to the emergency room. The risk, options and possible complications and side effects of the medications were discussed with the patient and she understands accepts these. No medication changes were made today as the patient feels she is doing better and so does not want to increase the Zoloft. She now knows that if she needs to increase her Zoloft later she is able to because her GI symptoms are not due to any colitis. She will continue to follow-up with her outpatient psychiatric and medical providers. A refill was given for her BuSpar medication, 10 mg p.o. 3 times daily. With 1 refill.
== END 2020-06-22 23:59 ==
LOC: BHIOP 09:00
PROVIDERS: PCP Family Medicine; Referring Provider Psychiatry & Neurology Psychiatry; Visit Provider Psychiatry & Neurology Psychiatry
DX: F33.2 Major depressive disorder, recurrent severe without psychotic features (principal); F41.1 Generalized anxiety disorder
CPT/HCPCS: H0035; 90832; 90834; 90853

== ENCOUNTER 2020-06-23 09:00 | Outpatient (RCR) | payer BC, SELFPAY ==
--- NOTE | 2020-06-23 09:00 | BH.SGPN.GN ---
Behaviors/Verbalizations/Mental Status: []Client alert and oriented, casually dressed. Eye contact fair. Motor activity appropriate. Speech within normal limits. Affect congruent, mood euthymic and anxious. Thoughts linear, logical, no signs of hallucinations or delusions. Reviewed client?s symptom tracker, no risk or plan for suicide ideation, plan, or intent as of 06/23/20. Client Response/Progress/Benefit: []Client responded well to session, engaged throughout and participated in group discussion. Client reported feeling ?content? this morning. Client reports working on her goal of thought-challenging and advocating for her needs. Identified an increase of motivation as well as scheduling time with supports as healthy coping skills. Reported a stressor as feeling upset with minor inconveniences but uses gratitude and a positive perspective to challenge negative thoughts. Benefited from group as client demonstrated and provided examples of thought challenging. Progress noted as client reports using healthy coping skills and reframing negative thoughts. Client will be discharged from IOP program today as client no longer meets criteria for IOP level of care. Narrative Note: []
--- NOTE | 2020-06-23 11:10 | BH.SGPN.GN ---
Behaviors/Verbalizations/Mental Status: [] Eye contact is fair to good. Alert and oriented. Motor activity is appropriate. Appearance is casual. grooming is appropriate. Speech appropriate. Mood is anxious. Affect is congruent. Thoughts are linear and logical. No evidence of psychosis or hallucinations. Client Response/Progress/Benefit: [] Pt receptive of session, listened attentively to peers and participated in the activity. However, struggled to provide input throughout group discussion. Group processed the activity and identified positive and negative forces impacting ability to complete the challenge. Pt was attentive during psychoeducation and appeared to benefit from increased insight on the impact of negative and positive forces on mental wellness. Declined to share out loud her goals for improving positive forces, however completed forces identification worksheet. Identified wanting to focus on positive supports such as reaching out to family and friends. Pt discharging from IOP program on this date and is recommended to continue with outpatient counseling to maintain gains, prevent decompensation, and further improve consistent skill application. Narrative Note: []
--- NOTE | 2020-06-23 11:17 | BH.IGGP_ITS ---
Aftercare Plan - Demographics Treatment End Date:: 06/23/20 Psychiatrist:: Hawa Do Psychiatrist Office #:: [phone] [facility]/IOP Therapist:: Heather Naik Therapist Phone #:: [phone] - Medications Home Medications: Home Medications Levonorgestrel/Ethin.estradiol [Kurvelo Tablet] 1 ea PO DAILY 08/15/19 DiphenhydrAMINE [Benadryl] 25 - 50 mg PO QHS PRN PRN 08/29/19 Ergocalciferol (Vitamin D2) [Vitamin D2] 50,000 unit PO QWEEK 30 Days #4 cap 08/29/19 Sertraline HCl [Zoloft] 100 mg PO DAILY 05/16/20 busPIRone [Buspar] 10 mg PO TID 30 Days #180 tab 06/18/20 - Plan Details Progress/Aftercare Plan Details:: Monalisa has responded very well to treatment and has made significant progress. When Monalisa started IOP, she was depressed, only wanted to sleep after work, afraid to be vulnerable, and struggling to connect with supports. Now, Monalisa is consistently being social, opening up more with supports, and more active on a daily basis. Monalisa has worked on reframing her thinking and using healthy coping skills to prevent depressive episodes. Monalisa has also learned how to manage anxiety and communicate her emotions more with supports. Monalisa gained awareness of distortions, maintenance cycles, and healthy versus unhealthy relationships. Monalisa?s overall symptoms have decreased by 69% since she started the program. Depression has decreased by 100% and anxiety has decreased by 80%! Monalisa was an active group member who gave insight to discussion, feedback to peers, and connects the topics to her daily life. Monalisa was highly engaged in her individual sessions and was mostly consistent with homework and skill utilization outside of group. Monalisa recognizes that she can still benefit from traditional outpatient counseling and she would like to follow up with [facility]. Strategies for Success:: 1.Feel the feelings and care for them, not push them away or avoid. You have been doing great with this! Remember it?s okay to cry, be anxious, and be upset, but don?t live there and be aware of warning signs. 2. Self-care! Read, journal, set boundaries, exercise, talk about your feelings, and spend time with friends. 3. Challenge distortions. Be on the lookout for mind-reading, jumping to conclusions, overgeneralizing, and emotional reasoning. 4. Remember boundaries are a GOOD thing! They teach others how to treat you. 5. Vulnerability. Yes it?s scary, but remember the answer is always no if you never ask. And most of the time relationships improve with communication. 6. Continue to be social! 7. Did I already say communicate?!? Well? one more time, communicate! 8. Self-love is the cornerstone of everything. Keep working on this.. 9. Set small goals and ask for help if needed. 10. Give yourself LOTS of credit because you ROCK! - Appointments Appointments/Referrals to Other Services:: 1. Follow up with Riccardo Cabrera- Suzanne Velazquez for individual counseling.
--- NOTE | 2020-06-23 11:30 | BH.MDN_ITS ---
Multi-Disciplinary Note - Note 45-min Individual Time Started:: 10:30 Date: 06/23/20 Purpose of session/treatment goals addressed:: The purpose of this session was to review client's progress and review strategies that will promote mood stability and gains made in IOP. Another goal was to discuss discharge recommendations and process any current stressors. Eye Contact:: Good Motor Activity:: Appropriate Appearance:: Casual Speech:: Appropriate Mood:: Anxious Affect:: Constricted Thoughts:: Linear, Logical, No evidence of hallucinations/delusions noted Staff Interventions:: Therapist used open-ended questions to explore client's thoughts on personal progress. Therapist also provided emotional support and helped client problem-solve current stressors. Therapist reviewed supports and coping skills with client to promote gains and prevent setbacks. Therapist discussed aftercare plan with client and used strengths-perspective to empower client on the goals client has accomplished. Therapist discussed the benefits of ongoing maintenance and use of daily coping skills. Therapist gave client a quote collage for closure. Client Response:: Client responded well to session, open to meeting with therapist. Client reports feeling ready to discharge from [facility]. Client identified her progress to be less isolation, increased ability to reframe thoughts, less avoidance, more positive perspective, increased communication, and improved relationships. Client stated she feels more stable and confident in her ability to cope with emotions. Client shared ?I don?t shut down as much? and that she is much more social. Reviewed healthy coping skills to maintain post IOP discharge which included: talking with supports, self-care, setting small goals, thought challenging, and communicating needs. Client currently feels stressed about her future living situation as well as some tension between client and her mother. Discussed the benefits of ongoing communication, vulnerability, and boundary setting. Client receptive to following up with Suzanne Velazquez at [facility] for individual counseling. Risks/Concerns:: Client denies any suicidal ideations, plan, or intent as of 06/23/20. Progress Toward Goals/Plan:: Client has responded well to treatment and has made great progress while in IOP AEB her DSM-5 score reduction and self-report. Client self-reports overall improved mood, reduced severity of symptoms, improved functioning, and a more positive perspective. Client reports increased ability to manage her moods and challenge negative thoughts. Client still has stressors about her future and relationships, but she self-reports increased ability to cope. Client will discharge IOP and transition to outpatient counseling at [facility]. Time Stopped:: 11:10
--- NOTE | 2020-06-23 11:30 | BH.DS_ITS ---
Discharge Summary - Demographics Date of Admission:: 05/12/20 Discharge Date: 06/23/20 Presenting Problems at Admission:: Client is a 19-year-old female with a history of MDD and BING. Client previously attended [facility] from 08/10/19-09/07/19 but she did not finish the program. Client was self-referred back to [facility] due to worsening depression which is impacting her work and relationships. At admission, client reported work was a significant stressor that exacerbated client?s mental health symptoms. Client stated she would go to work and then lay in bed for the rest of the night each day. Client endorsed a depressed mood with anhedonia, apathy, lack of energy, increased sleep, isolative behaviors, lack of concentration, and feelings of worthlessness. Client reported feeling on the verge of crying every day. Client also used marijuana 3x a week to help with anxiety. Additionally, at admission, client was having thoughts of self-harm and severe ruminations. Client?s symptoms were significantly impacting her overall functioning. 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 - Treatment Progress During Treatment & Response: Client responded well to treatment and made progress towards her treatment goals AEB reduction in DSM-5 scores and engagement in group and individual sessions. Client?s attendance was variable at times, but client reported consistent use of coping skills outside of IOP. Client used healthy coping skills including opposite action, exercise, spending time with supports, communication, and thought challenging. Client was an active group member who often gave insight to discussion, feedback to peers, and connected the topics to her daily life. Client is engaged in her individual sessions and was mostly consistent with homework and skill utilization outside of group. Client was also receptive to encouragement from therapist to practice goal setting and assertive communication. Client?s overall DSM-5 scores have decreased by 69% since she started the program. Additionally, depression has decreased by 100% and anxiety has decreased by 80%. Issues Still to be Addressed:: Client can benefit from ongoing counseling to reinforce healthy coping skills she has learned in [facility]. Client would like to continue working on increasing self-esteem, reducing ruminations, improving communication with supports, and challenging negative thoughts. Client can also benefit from maintaining self-care and being social. Discharge Recommendations/Instructions:: Client is encouraged to follow up with [facility] for individual counseling. Client also will follow up with her PCP for medication management. Client does not want to participate in IOP aftercare group. Discharge Handout: Complete Discharge Handout with client on aftercare options and continuity of care.
== END 2020-06-23 16:31 | disposition home or self-care (01) ==
LOC: BHIOP 09:00
PROVIDERS: PCP Family Medicine; Referring Provider Psychiatry & Neurology Psychiatry; Visit Provider Psychiatry & Neurology Psychiatry
DX: F33.2 Major depressive disorder, recurrent severe without psychotic features (principal); F41.1 Generalized anxiety disorder
CPT/HCPCS: H0035; 90834; 90853

== ENCOUNTER 2021-01-31 17:23 | Emergency (ER) | payer OTHER, SELFPAY ==
[2021-01-31 17:23] VITALS: BP 129/81; PULSE 101; RESP 16; TEMP 36.3; O2SAT 97; BMI 20.6
[2021-01-31 17:44] VITALS: BP 120/80; PULSE 98; RESP 18; TEMP 36.8; O2SAT 95
[2021-01-31 18:22] LABS: Mucous, Urine 0 SEEN /hpf (<or=2+)
[2021-01-31 18:24] LABS: Color, Urine Yellow (Yellow); Glucose, Dipstick Normal (Normal); Ketone-Dipstick 5 mg/dl (Negative); Leukocyte Esterase-Dipstick 500 /ul (Negative); Nitrite-Dipstick Negative (Negative); Occult Blood-Urine 250 /ul (Negative); Protein-Dipstick 100 mg/dl (Negative); Urine Bilirubin Dipstick Negative (Negative); Urine Clarity Cloudy (Clear); Urine Urobilinogen Normal (Normal)
--- NOTE | 2021-01-31 18:27 | ED.VIS.FEGU ---
HPI HPI - Female History of Present Illness Chief Complaint: Complaint Informant: patient Narrative Narrative: Patient presents with left flank pain and dysuria. She states she started with dysuria about 2 weeks ago. She had some urgency. She mentioned this to her doctor on of the visit for another issue. They recommended increasing fluids and cranberry pills to see if it gets better. Patient really did not do this. She did drink a little more fluids. Symptoms seem to be getting better but now they have been getting worse again the last 2 or so days. She has dysuria frequency and urgency. Urine is also cloudy. Today she is starting to develop some left flank pain. It was not sudden onset or stabbing. She had some mild nausea earlier but that is gone. She has never had fevers. No vomiting. Nothing really makes her symptoms better or worse. She has no discharge or bleeding. Last menstrual period is about 4 weeks ago and is due to start any day. She is on control. [facility] Medical History Generalized anxiety disorder Major depressive disorder, recurrent episode, severe Tonsillectomy planned Home Medications levonorgestrel-ethinyl estrad 1 ea PO DAILY 08/15/19 [History Last Taken Unknown] ondansetron 4 mg PO Q8H PRN #10 tab 01/31/21 [Rx Last Taken Unknown] sulfamethoxazole-trimethoprim [Bactrim DS] 1 tab PO BID #20 tab 01/31/21 [Rx Last Taken Unknown] Allergy/AdvReac Type Severity Reaction Status Date / Time Penicillins Allergy Hives Verified 01/31/21 17:43 Social History Smoking Status: Never smoker ROS ROS ED Constitutional Constitutional ED: Denies chills or fever(s) Respiratory/Chest Respiratory/Chest: Denies cough or dyspnea Gastrointestinal Gastrointestinal: Reports nausea; Denies abdominal pain, diarrhea or vomiting Genitourinary Genitourinary ED: Reports dysuria and urinary frequency Musculoskeletal Musculoskeletal: Denies arthralgias Integumentary Denies rash Neurologic Neurologic: Denies headache(s) or weakness Hematologic/Lymphatic Hematologic/Lymphatic: Denies easy bleeding or easy bruising EXAM Physical Exam Const Vital Signs: 01/31/21 17:23 01/31/21 17:44 Temperature 97.3 F L 98.3 F Temperature Source Temporal Oral Pulse Rate 101 H 98 Respiratory Rate 16 18 Blood Pressure 129/81 H 120/80 Blood Pressure Mean 97 93 Pulse Ox 97 95 Oxygen Delivery Method Room Air Room Air Positive well nourished and well developed General Appearance ED: well developed and NAD HEENT Negative for trauma Eyes General Eye ED: Negative for scleral icterus Resp normal respiratory effort Cardio regular rate and regular rhythm GI normal to inspection, nondistended, normoactive bowel sounds and non-tender Narrative: Mendez does have some mild CVA tenderness on the left. Back/Spine General Back: CVA tenderness Extremity normal to inspection General Extremety ED: Negative for edema General Extremity: Negative for edema Neuro oriented x3 Sensorium / Orientation: alert Psych mental status grossly normal Skin no rashes or lesions noted MDM MDM MDM Narrative Medical decision making narrative: Urine is strongly consistent with UTI. I think the patient's history and exam are most consistent with UTI. I do not think this is consistent with his kidney stone. I do not think she requires a CAT scan. I will write her for some Bactrim and Zofran. She is not nauseated now but did get some transient nausea earlier. We discussed reasons to return. These include high fevers but especially nausea vomiting and inability to keep meds down. Lab Data Attestation: I reviewed the patient's lab results. Labs: Laboratory Results - last 24 hr 01/31/21 17:57 Urine Color Yellow Urine Clarity Cloudy Urine pH 6.0 Ur Specific [place] 1.020 Urine Protein 100 H Urine Glucose (UA) Normal Urine Ketones 5 H Urine Occult Blood 250 H Urine Nitrite Negative Urine Bilirubin Negative Urine Urobilinogen Normal Ur Leukocyte Esterase 500 H Urine RBC 50-100 SEEN Urine WBC >100 SEEN Ur Squamous Epith Cells 5-10 SEEN Amorphous Sediment 1+ URATE Urine Bacteria 3+ Urine Mucus 0 SEEN Discharge Plan Triage Chief Complaint: Complaint ED Provider: David Song Dx/Rx/DC Orders Clinical Impression: Pyelonephritis Instructions: ED Pyelonephritis, Female (Adult) Prescriptions: New ondansetron 4 mg tablet,disintegrating 4 mg PO Q8H PRN (Reason: nausea and vomiting) Qty: 10 RF: 0 sulfamethoxazole-trimethoprim [Bactrim DS] 800-160 mg tablet 1 tab PO BID Qty: 20 RF: 0 No Action levonorgestrel-ethinyl estrad 1 EACH tablet 1 ea PO DAILY RF: 0 Primary Care Provider: Michelle Park Referrals: Michelle Park PA [Primary Care Provider] - 3-5 Days if not improving Disposition Disposition: Home, Self Care
[2021-01-31 18:36] LABS: Amorphous Sediment 1+ URATE; Bacteria 3+ /hpf (None Seen); Red Blood Cells-Urine 50-100 SEEN /hpf (0-5); Squamous Epithelial Cells - UA 5-10 SEEN /hpf (5-10); White Blood Cells >100 SEEN /hpf (0-5)
[2021-01-31] MEDS: Smz/Tmp Ds Tablet 1 TABLET PO (19:21)
[2021-01-31 19:22] VITALS: BP 124/80; PULSE 90; RESP 16; O2SAT 100
== END 2021-01-31 19:25 | disposition home or self-care (01) ==
PROVIDERS: Emergency Medicine; Emergency Provider Emergency Medicine
DX: N12 Tubulo-interstitial nephritis, not specified as acute or chronic (principal); Z79.3 Long term (current) use of hormonal contraceptives; Z79.890 Hormone replacement therapy
CPT/HCPCS: 81001; 99283

== ENCOUNTER → 2022-03-09 | Outpatient (CLI) | payer OTHER, SELFPAY ==
[2022-03-09 12:17] LABS: D-Dimer Quantitative (DVT/PE) < 0.27 FEU/ug/m (0.27-0.49)
== END | disposition home or self-care (01) ==
LOC: LABSPEC 11:50
PROVIDERS: Visit Provider Internal Medicine
DX: R07.89 Other chest pain (principal)
CPT/HCPCS: 85379

== ENCOUNTER → 2022-03-16 | Outpatient (CLI) | payer OTHER, SELFPAY ==
--- NOTE | 2022-03-16 10:01 | ECHOD_ITS ---
Reason For Study: CHEST TIGHTNESS Procedure This was a 2D Doppler, Color Flow transthoracic echocardiogram. Exam performed in department. Left Ventricle Normal LV size. Left ventricular systolic function is normal. The estimated ejection fraction is 65 %. Normal diastology for age. No regional wall motion abnormalities noted. Right Ventricle Normal RV size. Normal systolic function. Atria Normal left atrium. Normal right atrium. Mitral Valve Normal mitral valve. Tricuspid Valve Normal tricuspid valve. Aortic Valve Normal aortic valve. Trisinus/trileaflet aortic valve. Pulmonic Valve Normal pulmonic valve. Great Vessels Normal aortic root. The pulmonary artery is normal size. Inferior vena cava collapse with respiration. Pericardium/Pleural No pericardial effusion. MMode/2D Measurements & Calculations LVIDd: 4.4 cm IVSd: 0.55 cm Ao root diam: 2.4 cm LVIDs: 2.9 cm LVPWd: 0.64 cm RVDd: 3.0 cm FS: 34.4 % LAV(MOD-bp): 29.2 ml LVAd ap4: 21.3 cm2 SV(MOD-sp4): 29.4 ml LAV(MOD-bp) Indexed: 16.4 ml/m2 LVLd ap4: 6.9 cm LAV(MOD-sp2): 33.6 ml EDV(MOD-sp4): 53.4 ml LAV(MOD-sp4): 22.1 ml EDV(sp4-el): 55.8 ml LVAs ap4: 13.0 cm2 LVLs ap4: 5.9 cm ESV(MOD-sp4): 24.0 ml ESV(sp4-el): 24.4 ml EF(MOD-sp4): 55.1 % EF(sp4-el): 56.3 % SV(sp4-el): 31.4 ml LA A4 area: 12.0 cm2 LA dimension(2D): 3.1 cm RA A4 area: 9.6 cm2 Time Measurements MV dec time: 0.14 sec Doppler Measurements & Calculations MV E max christiano: 73.4 cm/sec Lat Peak E' Christiano: 16.9 cm/sec Med Peak E' Christiano: 12.5 cm/sec MV A max christiano: 50.6 cm/sec E/E' lat: 4.3 E/E' med: 5.9 MV E/A: 1.5 MV V2 max: 80.4 cm/sec Ao V2 max: 139.7 cm/sec MV max P.6 mmHg MV dec slope: 578.6 cm/sec2 Ao max P.8 mmHg MV V2 mean: 54.2 cm/sec Ao V2 mean: 95.0 cm/sec MV mean P.3 mmHg Ao mean P.2 mmHg MV V2 VTI: 22.0 cm Ao V2 VTI: 25.2 cm LV V1 max: 116.3 cm/sec PA V2 max: 105.7 cm/sec LV V1 max P.4 mmHg PA V2 mean: 81.0 cm/sec LV V1 mean P.1 mmHg LV V1 mean: 83.2 cm/sec LV V1 VTI: 21.1 cm ECHO/Echo Complete Interpretation Summary Normal LV size. Left ventricular systolic function is normal. The estimated ejection fraction is 65 %. Normal diastology for age. Ordering Physician: Cristel Wilks Referring Physician: Cristel Wilks Performed By: Shelli Arroyo RCS
== END | disposition home or self-care (01) ==
PROVIDERS: Referring Provider Internal Medicine; Visit Provider Internal Medicine
DX: R07.89 Other chest pain (principal); R00.2 Palpitations
CPT/HCPCS: 93306

== ENCOUNTER → 2022-03-30 | Outpatient (CLI) | payer OTHER, SELFPAY | END | disposition home or self-care (01) | LOC: PSN 12:59 | PROVIDERS: PCP Internal Medicine; Referring Provider Internal Medicine; Visit Provider Internal Medicine | DX: R00.2 Palpitations (principal) | CPT/HCPCS: 93225; 93226 ==